=== PATIENT | male | born 1950 | race Caucasian/White ===

== ENCOUNTER 2017-02-12 11:54 | Day surgery (SDC) | payer MEDICARE, OTHER ==
[~2017-02-12] VITALS: Ht 162.6 cm; Wt 91.2 kg
[2017-02-12] MEDS ORDERED: IOHEXOL 350 MG/ML 100 ML BTL (for Cath Lab) OTHER ONE (11:55)
--- NOTE | 2017-02-12 13:28 | PD.VS.PN ---
Pre-operative Note Pre-operative diagnosis: PAD, R>L LE pain Planned procedure: Aortogram w/ R LE angiogram Interval History: Pt has been feeling well; no new history that would preclude surgery Labs: pending Blood: none needed Imaging: will make in OR Orders: NPO Post-operative destination: DOCU Operative site marked: Yes Consent: Informed consent has been obtained from Jakob Jacobsen. I have explained the procedure in detail and discussed the risks, benefits, and potential complications. All questions have been answered. Tereso Renee MD Feb 12, 2017 13:28
[2017-02-12 13:33] LABS: BASOPHIL % 0.1 % (0.0-2.0); EOSINOPHIL # 0.4 TH/MM3 (0-0.4); EOSINOPHIL % 4.5 % (0.0-4.0); HEMATOCRIT 42.1 % (39.0-51.0); HEMO FLAGS DIFF FINAL; LYMPH % 15.7 % (9.0-44.0); LYMPHOCYTE # 1.3 TH/MM3 (1.0-4.8); MEAN CELL VOLUME 91.5 FL (80.0-100.0); MEAN CORPUSCULAR HEMOGLOBIN 30.6 PG (27.0-34.0); MEAN CORPUSCULAR HGB CONC 33.4 % (32.0-36.0); MONO % 6.6 % (0.0-8.0); NEUT % 73.1 % (16.0-70.0); PLATELET COUNT 292 TH/MM3 (150-450); RED CELL DISTRIBUTION WIDTH 14.6 % (11.6-17.2); WHITE BLOOD COUNT 8.3 TH/MM3 (4.0-11.0)
[2017-02-12 13:42] LABS: PROTHROMBIN TIME - PATIENT 10.5 SEC (9.8-11.6)
[2017-02-12 13:44] VITALS: BP 126/75; PULSE 62; RESP 18; TEMP 98.4; O2SAT 62
[2017-02-12] MEDS ORDERED: AMLO10TA2 PO (13:56)
[2017-02-12] MEDS ORDERED: TRIA37.5 PO (13:56)
[2017-02-12] MEDS ORDERED: ISOS30TA3 PO (13:56)
[2017-02-12] MEDS ORDERED: PLAV75TA29 PO (13:56)
[2017-02-12] MEDS ORDERED: HYDR50TA94 PO (13:56)
[2017-02-12] MEDS ORDERED: MIRTA15 PO (13:56)
[2017-02-12] MEDS ORDERED: LIPI40TA PO (13:56)
[2017-02-12] MEDS ORDERED: OMEP20TA93 PO (13:56)
[2017-02-12] MEDS ORDERED: ADVA250A INH (13:56)
[2017-02-12] MEDS ORDERED: APRI0.372 PO (13:56)
[2017-02-12] MEDS ORDERED: FLUT1SPR5 EACH NARE (13:56)
[2017-02-12] MEDS ORDERED: OMEG100046 (13:56)
[2017-02-12] MEDS ORDERED: ASPI-516 CHEW (13:56)
[2017-02-12] MEDS ORDERED: APIX5TAB PO (13:56)
[2017-02-12] MEDS ORDERED: LISI40TA PO (13:56)
[2017-02-12] MEDS ORDERED: TAMS0.4C4 PO (13:56)
[2017-02-12] MEDS ORDERED: ALLE10TA10 (13:56)
[2017-02-12] MEDS ORDERED: QUET1TAB9 PO (13:56)
[2017-02-12] MEDS ORDERED: NOVORP2 SQ (13:56)
[2017-02-12] MEDS ORDERED: GABA600T PO (13:56)
[2017-02-12] MEDS ORDERED: METF-382 PO (13:56)
[2017-02-12 14:14] LABS: BICARBONATE 30.6 MEQ/L (21.0-32.0)
[2017-02-12] MEDS ORDERED: HEPARIN-NS/PF INJ 1,000 ML ONE (14:31)
[2017-02-12] MEDS ORDERED: MIDAZOLAM HCL 5 MG/5 ML VIAL ONE (14:32)
--- NOTE | 2017-02-12 14:59 | HHI.PR ---
Immediate Post Op Note Procedure Date: Feb 12, 2017 Pre Op Diagnosis: PAD, B LE Post Op Diagnosis: same Surgeon: Tereso Renee Adjunct Business Instructor(s): none Procedure: Aortogram w/ B LE angiogram Findings: 1. R EIA stenosis 2. R FIELD SERVICE TECH stenosis 3. R SFA occlusion with BK popliteal reconstitution 4. Diffuse L SFA disease Additional Information: 4F sheath in the L FIELD SERVICE TECH removed in OR Complications: none Specimen(s) removed: none Estimated blood loss: 5mL Anesthesia: General Drains: None Fluids: 300 mL Patient to: Other (DOCU) Patient Condition: Good Date/Time of Procedure: SEE SURGICAL CARE RECORD Tereso Renee MD Feb 12, 2017 14:59
[2017-02-12] MEDS ORDERED: MORPHINE SULFATE 4 MG/ML INJ IV PRN (15:00)
--- NOTE | 2017-02-12 15:11 | CATHPROC ---
[facility] HIS Report Study Information Study Number Admission Scheduled Start Study Start [id number] Feb 12 2017 11:54AM 02/12/2017 Feb 12 2017 1:42PM [place] Service Cath Endovascular Study Admit Source Facility Department Other [facility] - Antenna Rigger Physician and Clinical Staff Initial Tereso Valdez Equipment SuperintendentTalia Adame,ARTUR Equipment SuperintendentRomario Medina,RN Recorder Homer Mejia,RT(R) Scrub Tylor LongRT(R) Procedures Performed Procedure Location (Site) Vessel Name Abdominal Angiogram Abd Aorta (A3) Aorta Abdominal Angiogram Fem R. Com (R7) Femoral Art Abdominal Angiogram PELVIS Abdominal Angiogram Popliteal R (R10) Popliteal Abdominal Angiogram SFA (right) Femoral Art Abdominal Angiogram Tib, Ant. (right) Popliteal Angiogram (manual) Fem Art (left) Femoral Art Angiogram (manual) Fem Art (right) Femoral Art Angiogram (manual) Popliteal L (L10) Popliteal Angiogram (manual) SFA (right) Femoral Art Wire insertion Fem Art (left) Femoral Art Equipment Time Tea Taster Description Size Mfg Part Number Used/Scraped [id number] 13:43 ANGIO-DYNAMICS OMNI FLUSH 65CM CATHETER FR 4 Used *[id number] INTRODUCER SET, 13:43 [employer] FR 5 [id number] *[id number] Used MICROPUNCTURE, STIFFENED [id number] 13:43 [employer] PACK, CCL CUSTOM * Used *[id number] 13:43 [employer] PRESSURE TUBING 48" 48" [id number] Used [id number] 13:43 NAMIC TUBING, HIGH PRESSURE 20" 20" Used *[id number] 13:43 [employer]COMED OMNIPAQUE, 300 MG, 150ML 150ML [id number] Used 13:43 NYCOMED OMNIPAQUE, 300 MG, 50ML 50ML [id number] Used [id number] 13:43 [employer] BLANKET,WARM AIR CCL * Used *[id number] 13:43 TERUMO MEDICAL SHEATH, FR4 TERUMO (10CM) FR 4 Used *[id number] 13:43 TERUMO MEDICAL SHEATH, FR4 TERUMO (10CM) FR 4 Used *[id number] WIRE, ANGLED GLIDE .035 [id number] 13:43 TERUMO MEDICAL/STEVEN 260CM Used 260CM *[id number] History: Current Medications Medication Dosage/Unit Route Frequency Last Date/Time Taken LIPITOR LISINOPRIL NORVASC Imdur ASA ELIQUIS History: Allergies Allergy Reaction fentanyl History: Risk Factors Family History of Hypertension Dyslipidemia Previous LA Previous Heart Failure Premature CAD Yes Yes No Yes No Prior Valve Prior PCI Prior PCIDate Prior CABG Surgery No Yes 01/31/2015 No Cerebrovascular Peripheral Artery Chronic Lung On Dialysis Diabetes Diabetes Therapy Disease Disease Disease No Yes Yes Yes Yes Oral History: CV Disease Selection Items Known CAD History: Stress Tests Stress or Imaging Studies Performed No History: Other Disease Selection Items CAD COPD HTN History: Other Current Smoker Method Quit Packs a Day Years Used Pack Years No Cigarettes 8 Years Ago 2 40 80 Labs Hgb (g/dl) Hct (%) RBC (MIL/MM3) WBC (l/cumm) Platelets (thousands) 11.60-17.00 35.00-51.00 4.00-5.90 4.00-11.00 150.00-450.00 14.1 42.1 4.6 8.3 292 Glucose (mg/dl) BUN (mg/dl) Creatinine (mg/dl) BUN:Creatinine (1:x) 74.00-106.00 7.00-18.00 0.50-1.30 10.00-20.00 168 22 1.0 22 Na (meq/l) K (meq/l) Cl (meq/l) CO2 (mmol/L) Ca (mg/dl) 136.00-145.00 3.50-5.10 98.00-107.00 21.00-32.00 8.50-10.10 136 4 101 30.6 9.2 PT (sec) INR (PTT:PT) 9.80-11.60 0.90-1.10 10.5 1 CPK-MB (ng/ML) 0.50-3.60 Not Drawn Medication Medication Total Dose (Bolus/Oral) Medication Total Dosage/Unit 1% XYLOCAINE 20 mL VERSED 4 mg Medications (Bolus/Oral) Medication Time Given Dosage/Unit Administered By Reason VERSED 02/12/2017 2:38:44 PM 2 mg Talia Wiggins 2 mg VERSED given in lab by Talia Wiggins RN in Left Antecubital via Peripheral IV. 1% XYLOCAINE 02/12/2017 2:40:49 PM 20 mL Tereso Renee 20 mL 1% XYLOCAINE given in lab by Tereso Renee in Left Groin via Subcutaneous. VERSED 02/12/2017 2:53:27 PM 2 mg Talia Wiggins 2 mg VERSED given in lab by Talia Wiggins RN in Left Antecubital via Peripheral IV. Medication (Drip) Medication Time Given Dosage/Unit Concentration/Unit Diluent (ml) Solution IV Solutions 02/12/2017 2:26:41 PM 0 mL (IV) 500 NaCl .9 IV Solutions given in lab by Talia Wiggins RN in Left Antecubital via Peripheral IV. Pump/Drip Tripp w = 20 ml/hr using NaCl .9. Initial Case Assessment Cardiovascular HR Rhythm NIBP Chest Pain 70 Sinus 144/73 0 Edema Present Skin color Skin None Normal Warm Dry Circulatory - Right Pulses Dorsalis Pedis Femoral d 1 Scale (0,1,2,3,4,d) Circulatory - Left Pulses Dorsalis Pedis Femoral d 2 Scale (0,1,2,3,4,d) Neurological State Oriented to time-place- Alert Moves all extremities person Respiration - General Respiration Rate SpO2 (%) O2 (lpm) (B/min) 13 98 0 Final Case Assessment Cardiovascular HR Rhythm NIBP Chest Pain 73 Sinus 131/70 0 Edema Present Skin color Skin None Normal Warm Dry Circulatory - Right Pulses Dorsalis Pedis Femoral d 1 Scale (0,1,2,3,4,d) Circulatory - Left Pulses Dorsalis Pedis Femoral d 2 Scale (0,1,2,3,4,d) Neurological State Oriented to time-place- Alert Moves all extremities person Respiration - General Respiration Rate SpO2 (%) O2 (lpm) (B/min) 20 91 0 Chronological Log Time Study Chronological Log 14:25:51 MD arrived. 14:25:54 Patient arrived via Bed. 14:25:56 Patient Name, D.O.B, / Armband Verified By R.N. 14:25:57 Consent signed by the physician and the patient and verified by the Antenna Rigger staff. 14:25:58 Pre-op and post- op instructions given; patient acknowledges understanding of instructions. 14:25:59 Verbal Stimulation=2 Physical Stimulation=2 Airway=2 Respiration=2 TOTAL=8. (0=absent, 1=li mited, 2=present) 14:26:10 Presedation assessment performed by Antenna Rigger RN. 14:26:13 Patient has been NPO for More than 6Hrs. 14:26:13 Skin Breakdown-none per patient. 14:26:22 Patient Warmer Placed on the Table. 14::29 Corinne Prominences Protected 14:26:31 A # 20 IV was noted in the Antecubital (left). Grade = 0 IV Solutions given in lab by Talia Wiggins, RN in Left Antecubital via Peripheral IV. Pump/Dr ip Flow = 20 ml/hr using 14:26:41 NaCl .9. 14:26:57 History and physical on the chart or being dictated. Assessment: Initial Case, HR=70 BPM, Rhythm=Sinus, JGJG=640/73 mmhg, Chest Pain=0, Edema=None, Color=Normal, Skin = Warm, Dry Right Pulses: Emiliano Ped=d, Femoral=1 14:26:58 Left Pulses: Emiliano Ped=d, Femoral=2 Neurological: State=Alert, Ox3, NAYAK Respiration: Resp=13 B/min, SpO2=98 %, O2=0 lpm Vitals capture started with the following parameters, Patient=Adult, Interval=3 min, Initial Pr yvkjcf=022 mmHg, 14:36:37 Deflation Rate=5 mmHg, Cuff placed on Right Arm 14:37:19 HR=62 bpm, BXIP=083/73 mmhg, SpO2=98.0 %, Resp=11 B/min, Pain=0, Jaimee=10, Ferrari=2 14:38:25 Reference ECG taken 14:38:42 Bilateral groins prepped with 2% chlorhexidine, and draped after a 3 minute waiting time. 14:38:44 2 mg VERSED given in lab by Talia Wiggins, RN in Left Antecubital via Peripheral IV. 14:40:17 HR=77 bpm, GDCL=732/78 mmhg, SpO2=97.0 %, Resp=20 B/min, Pain=0, Jaimee=10, Ferrari=2 Time Out. Correct patient, correct procedure, correct physician, power injector loaded, with co ntrast with surgical team 14:40:32 present. Time Out Concurred by MD and individual staff in procedure. 14:40:45 Case Start 14:40:49 20 mL 1% XYLOCAINE given in lab by Tereso Renee in Left Groin via Subcutaneous. 14:42:30 Access site was Left Femoral Artery. 14:42:37 A SHEATH, FR4 TERUMO (10CM) FR 4 was advanced into the Fem Art (left) using the Percutaneou s technique. A OMNI FLUSH 65CM CATHETER FR 4 was advanced over a wire. OMNIPAQUE, 300 MG, 150ML 150ML was us ed for 14:43:03 injections. 14:43:15 HR=75 bpm, QJFW=133/70 mmhg, SpO2=99.0 %, Resp=8 B/min, Pain=0, Jaimee=10, Ferrari=2 14:45:45 Through a OMNI FLUSH 65CM CATHETER FR 4, The Abdominal Aorta was injected with 10 cc's of c ontrast. 14:46:09 Through a OMNI FLUSH 65CM CATHETER FR 4, The Abdominal Aorta was injected with 10 cc's of c ontrast. 14:46:15 HR=80 bpm, ZEYU=153/70 mmhg, SpO2=95.0 %, Resp=15 B/min, Pain=0, Jaimee=10, Ferrari=2 14:46:24 Through a OMNI FLUSH 65CM CATHETER FR 4, The Abdominal Aorta was injected with 10 cc's of c ontrast. 14:46:31 A WIRE, ANGLED GLIDE .035 260CM 260CM was inserted via Fem Art (left). 14:48:22 Fem Art (right) angiogram, manually injected. 14:49:13 HR=76 bpm, VISI=813/68 mmhg, SpO2=98.0 %, Resp=17 B/min, Pain=0, Jaimee=10, Ferrari=2 14:49:21 Through a OMNI FLUSH 65CM CATHETER FR 4, The Abdominal Aorta was injected with 4 cc's of co ntrast. 14:50:09 Through a OMNI FLUSH 65CM CATHETER FR 4, The Abdominal Aorta was injected with 4 cc's of co ntrast. 14:50:28 Through a OMNI FLUSH 65CM CATHETER FR 4, The Abdominal Aorta was injected with 4 cc's of co ntrast. 14:50:46 Through a OMNI FLUSH 65CM CATHETER FR 4, The Abdominal Aorta was injected with 4 cc's of co ntrast. 14:52:16 HR=76 bpm, RQJX=089/72 mmhg, SpO2=95.0 %, Resp=21 B/min, Pain=0, Jaimee=10, Ferrari=2 14:52:30 Catheter was removed w/o difficulty 14:52:31 Fem Art (left) angiogram, manually injected. 14:53:03 SFA (right) angiogram, manually injected. 14:53:09 Popliteal L (L10) angiogram, manually injected. 14:53:27 2 mg VERSED given in lab by Talia Wiggins, RN in Left Antecubital via Peripheral IV. 14:54:04 Case End 14:54:17 Sheath removed; pressure applied to access site. 14:54:22 No case complications noted. 14:54:24 Cine recording checked. 14:54:50 Bedside Report will be given. 14:55:16 HR=68 bpm, BLWR=285/73 mmhg, SpO2=93.0 %, Resp=16 B/min, Pain=0, Jaimee=10, Ferrari=2 Assessment: Final Case, HR=73 BPM, Rhythm=Sinus, LQKC=660/70 mmhg, Chest Pain=0, Edema=None, Color=Normal, Skin = Warm, Dry Right Pulses: Emiliano Ped=d, Femoral=1 14:57:14 Left Pulses: Emiliano Ped=d, Femoral=2 Neurological: State=Alert, Ox3, NAYAK Respiration: Resp=20 B/min, SpO2=91 %, O2=0 lpm 14:58:14 HR=74 bpm, HPKO=153/70 mmhg, SpO2=98.0 %, Resp=22 B/min, Pain=0, Jaimee=10, Ferrari=2 15:01:16 HR=63 bpm, EOYL=442/74 mmhg, SpO2=93.0 %, Resp=18 B/min, Pain=0, Jaimee=10, Ferrari=2 15:04:17 HR=75 bpm, SVJG=226/76 mmhg, SpO2=97.0 %, Resp=21 B/min, Pain=0, Jaimee=10, Ferrari=2 15:07:15 HR=65 bpm, SYOJ=663/69 mmhg, SpO2=85.0 %, Resp=23 B/min, Pain=0, Jaimee=10, Ferrari=2 15:09:47 Sterile dressing applied to site 15:10:15 HR=63 bpm, MLKI=189/74 mmhg, Resp=15 B/min, Pain=0, Jaimee=10, Ferrari=2 15:10:17 Vitals capture stopped. End Study - Contrast Media Used In Study Contrast Total Opened (mL) Total Used (mL) Total Wasted (mL) Omnipaque 100 60 40 End Study - Maximum Contrast Load Max Contrast Load (mL) 455.9 End Study - Radiation Exposure Fluoro Time (minutes) 3.2 End Study - Patient Disposition Complications Transferred To Interventional Outcome No Outpatient Bed No attempt made
--- NOTE | 2017-02-13 08:19 | MP ---
cc: TERESO RENEE MD DATE OF SURGERY 02/12/2017 PREOPERATIVE DIAGNOSIS Bilateral lower extremity rest pain, failed intervention. POSTOPERATIVE DIAGNOSIS Bilateral lower extremity rest pain, failed intervention. PROCEDURE Aortogram with bilateral lower extremity angiogram. MEDICATIONS Tereso Renee MD ANESTHESIA Local with sedation INDICATION Mr. Jacobsen is a 66-year-old gentleman with failed bilateral lower extremity interventions. He has right leg rest pain and left leg near rest pain and is taken to the operating room for angiographic evaluation and treatment. There is no prior catheter-based imaging available for my review. DESCRIPTION OF PROCEDURE Informed consent was obtained from the patient. The patient was taken to the operating room, placed supine on the operating room table and an appropriate time-out was taken to ensure the patient's identity, operative site and planned procedure. Antibiotics were not necessary as this was a clean procedure without planned implantation of any foreign objects. Everyone in the room agreed with the time-out and we proceeded. Bilateral groins were prepped and draped and the left groin was anesthetized with 1% lidocaine. A 21 gauge micropuncture needle was used to access the left common femoral artery. This was exchanged using Seldinger technique for the micropuncture sheath through which a 0.035 Glidewire was introduced. The micropuncture sheath was changed for a 4-Danish sheath. A VCF catheter was placed over the wire and through the sheath and the aortogram and pelvic arteriograms obtained. The Glidewire was introduced and navigated down to the right common femoral artery. The VCF catheter was advanced over this and a right lower extremity arteriogram was obtained. The wire and catheter removed and a left lower extremity angiogram was obtained through the sheath. The sheath was removed, pressure held for hemostasis. There were no complications. I was present and scrubbed for the entire procedure. INTERPRETATION This patient has a patent infrarenal aorta, patent common iliac arteries bilaterally, patent hypogastric arteries bilaterally. The right external artery has a high-grade stenosis proximally. The common femoral artery is patent. The profunda is patent. The right common femoral artery appears to have calcific plaque that is likely on the posterior surface of the plaque. The SFA has a flush occlusion and is intensely calcified. Profunda based collaterals give rise to the popliteal artery and there is reasonable runoff below the popliteal artery. On the left-hand side, the left common femoral artery is patent. The profunda is patent. The SFA has diffuse calcific disease, but is not occluded until the distal SFA. The popliteal artery is patent. MD CHRISTOS George/IBETH /4:10 PM /8:17 AM
== END 2017-02-12 19:10 | disposition home or self-care (01) ==
LOC: HDIC 11:54 → HCAT 11:54
PROVIDERS: ATTEND Surgery
DX: I73.9 Peripheral vascular disease, unspecified (principal); Z01.818 Encounter for other preprocedural examination
CPT/HCPCS: 75625; 75716; 80048; 85025; 85610; 99152; C1769; C1893; J1644; J2250; Q9967

== ENCOUNTER 2017-02-26 05:27 | Inpatient (IN) | payer OTHER ==
[~2017-02-26] VITALS: Ht 162.6 cm; Wt 88.5 kg
[2017-02-26] VITALS (7 sets, daily range): BP systolic 118–174; BP diastolic 58–79; PULSE 79–100; RESP 16–18; TEMP 97.1–97.7; O2SAT 98–99
[~2017-02-26 05:27] MED LIST: ADVA250A INH; ALLE10TA10; AMLO10TA2 PO; APIX5TAB PO; APRI0.372 PO; ASPI-516 CHEW; FLUT1SPR5 EACH NARE; GABA600T PO; HYDR50TA94 PO; ISOS30TA3 PO; LIPI40TA PO; LISI40TA PO; METF-382 PO; MIRTA15 PO; NOVORP2 SQ; OMEG100046; OMEP20TA93 PO; PLAV75TA29 PO; QUET1TAB9 PO; TAMS0.4C4 PO; TRIA37.5 PO
[2017-02-26] MEDS ORDERED: INSULIN HUMAN REGULAR 1,000 UNITS/10 ML VIAL SQ PRN (06:15)
[2017-02-26] MEDS ORDERED: METOPROLOL TARTRATE 25 MG TAB PO PRN (06:15)
[2017-02-26] MEDS ORDERED: POVIDONE IODINE 5% (ANTISEPSIS KIT) 4 APPLICATIONS EACH NARE PRN (06:15)
[2017-02-26] MEDS ORDERED: SODIUM CHLORID 0.9% 500 ML IV PRN (06:15)
[2017-02-26] MEDS ORDERED: CHLORHEXIDINE GLUCONATE 2 % 1 PACK (2 CLOTHS) TOPICAL PRN (06:15)
[2017-02-26] MEDS ORDERED: LACTATED RINGER'S 1000 ML IV PRN (06:15)
[2017-02-26] MEDS ORDERED: LANTUS2P SQ (06:49)
--- NOTE | 2017-02-26 06:50 | RADRPT ---
EXAM DATE/TIME: 02/26/2017 06:17 [place] COMPARISON: No previous studies available for comparison. INDICATIONS : Evaluation of lung status as patient is being pre-oped for vascular surgery. MEDICAL HISTORY : Cardiovascular disease. SURGICAL HISTORY : None. ENCOUNTER: Initial ACUITY: 1 day PAIN SCORE: 0/10 LOCATION: Bilateral chest FINDINGS: The heart size is normal. There is mild increased density in the retrocardiac area. The right lung is clear. No effusion is seen. CONCLUSION: Suspected mild left base atelectasis or consolidation. Phil Morrell MD on February 26, 2017 at 6:48 Board Certified Radiologist. This report was verified electronically.
[2017-02-26 07:05] LABS: AUTOMATED NEUTROPHIL # 4.8 TH/MM3 (1.8-7.7); BASOPHIL % 0.4 % (0.0-2.0); EOSINOPHIL # 0.3 TH/MM3 (0-0.4); EOSINOPHIL % 4.5 % (0.0-4.0); HEMATOCRIT 39.8 % (39.0-51.0); HEMO FLAGS DIFF FINAL; LYMPH % 24.4 % (9.0-44.0); LYMPHOCYTE # 1.9 TH/MM3 (1.0-4.8); MEAN CELL VOLUME 91.5 FL (80.0-100.0); MEAN CORPUSCULAR HEMOGLOBIN 31.6 PG (27.0-34.0); MEAN CORPUSCULAR HGB CONC 34.5 % (32.0-36.0); MONO % 7.9 % (0.0-8.0); NEUT % 62.8 % (16.0-70.0); PLATELET COUNT 261 TH/MM3 (150-450); RED BLOOD COUNT 4.35 MIL/MM3 (4.50-5.90); WHITE BLOOD COUNT 7.7 TH/MM3 (4.0-11.0)
[2017-02-26] MEDS ORDERED: D5-1/2 NS + KCL 20 MEQ INJ 1,000 ML IV SCH (07:14)
--- NOTE | 2017-02-26 07:14 | HHI.HP ---
History of Present Illness Chief Complaint: R LE rest pain, PAD History of Present Illness 66 yo male with PAD and R LE rest pain. Has had multiple R LE endovascular interventions, all elsewhere. Complains of pain every night. No wounds and no motor dysfunction. Past/Family/Social History Past Medical History CAD with WA and h/o coronary stents HTN Hypercholesterolemia DM CVOD prostate CA Past Surgical History LHC with stents Social History ex smoker Family History NC Home Medications Reported Medications Insulin Glargine Inj (Lantus Inj) 1,000 Unit/10 Ml Vial, 1 UNITS SQ HS for Blood Sugar Management, VIAL 0 Refills 02/26/17 [place]-3/Dha/Epa/Fish Oil (Fish Oil 1,000 mg Softgel) 1,000 Mg (120 Mg-180 Mg) Capsule 02/12/17 Triamterene-Hydrochlorothiazide (Triamterene-Hydrochlorothiazide) 37.5-25 Mg Tab , 1 TAB PO DAILY, #30 TAB 0 Refills 02/12/17 Tamsulosin (Tamsulosin) 0.4 Mg Cap, 0.4 MG PO HS for Manage Prostate Problems, # 30 CAP 0 Refills 02/12/17 Quetiapine (Quetiapine) 200 Mg Tab, 200 MG PO BID, #60 TAB 0 Refills 02/12/17 Omeprazole (Omeprazole) 20 Mg Tab, 20 MG PO DAILY, #30 TAB 0 Refills 02/12/17 Insulin Human Regular Inj (Novolin R Inj) 1,000 Unit/10 Ml Vial, 30 UNITS SQ TID for Blood Sugar Management, #10 ML 0 Refills 02/12/17 Mirtazapine (Mirtazapine) 15 Mg Tab, 15 MG PO HS for Depression Control, #30 TAB 0 Refills 02/12/17 Metformin ER (Metformin ER) 1,000 Mg Cameron, 1000 MG PO DAILY for Blood Sugar Management, #30 TAB 0 Refills With evening meal 02/12/17 Loratadine (Allergy) 10 Mg Tab 02/12/17 Lisinopril (Lisinopril) 40 Mg Tab, 40 MG PO DAILY for Blood Pressure Management , #30 TAB 0 Refills 02/12/17 Isosorbide Mononitrate ER (Isosorbide Mononitrate ER) 30 Mg Cameron, 30 MG PO DAILY for Prevent Chest Pain, #30 TAB 0 Refills 02/12/17 Hydroxyzine HCl (Hydroxyzine HCl) 50 Mg Tab, 50 MG PO HS Y for INSOMNIA, TAB 0 Refills 02/12/17 Gabapentin (Gabapentin) 600 Mg Tab, 600 MG PO BID, #60 TAB 0 Refills 02/12/17 Apixaban (Eliquis) 5 Mg Tab, 5 MG PO BID for Blood Clot Prevention, #60 TAB 0 Refills 02/12/17 Clopidogrel (Plavix) 75 Mg Tab, 75 MG PO DAILY for Blood Clot Prevention, #30 TAB 0 Refills 02/12/17 Atorvastatin (Lipitor) 40 Mg Tab, 40 MG PO HS for Cholesterol Management, #30 TAB 0 Refills 02/12/17 Aspirin (Aspirin) 81 Mg Chew, 81 MG CHEW DAILY, TAB 0 Refills 02/12/17 Mesalamine ER 24 HR (Apriso) 0.375 Gm Caper, 1.5 GM PO DAILY for Ulcerative colitis, CAP 0 Refills 02/12/17 Amlodipine (Amlodipine) 10 Mg Tab, 10 MG PO DAILY for Blood Pressure Management , #30 TAB 0 Refills 02/12/17 Fluticasone-Salmeterol Inh (Advair Diskus Inh) 250-50 Mcg/Blist Aer, 1 PUFF INH BID, #1 INHALER 0 Refills Rinse mouth after use. 02/12/17 Discontinued Reported Medications Fluticasone Nasal Mathews (Flonase Nasal Mathews) 50 Mcg/Act Mathews, 50 MCG EACH NARE BID Y for ALLERGIES, #1 BOTTLE 0 Refills 02/12/17 Coded Allergies: fentanyl (Verified Allergy, Severe, 02/26/17) severe agitation and aggresion Review of Systems Constitutional: DENIES: Fever, Chills Cardiovascular: DENIES: Chest pain Physical Exam Neuro: alert, resting, NAYAK HEENT: NC/AT; anicteric sclera Neck: no JVD Heart: reg rate Lungs: clear and nonlabored Abdomen: NT, modest obesity Vascular: diminished R groin pulse; no groin rashes Extremities: NAYAK, no wounds Laboratory Tests Test 02/26/17 06:40 White Blood Count 7.7 Red Blood Count 4.35 Hemoglobin 13.8 Hematocrit 39.8 Mean Corpuscular Volume 91.5 Mean Corpuscular Hemoglobin 31.6 Mean Corpuscular Hemoglobin Concent 34.5 Red Cell Distribution Width 15.0 Platelet Count 261 Mean Platelet Volume 8.0 Neutrophils (%) (Auto) 62.8 Lymphocytes (%) (Auto) 24.4 Monocytes (%) (Auto) 7.9 Eosinophils (%) (Auto) 4.5 Basophils (%) (Auto) 0.4 Neutrophils # (Auto) 4.8 Lymphocytes # (Auto) 1.9 Monocytes # (Auto) 0.6 Eosinophils # (Auto) 0.3 Basophils # (Auto) 0.0 CBC Comment DIFF FINAL Differential Comment CTA and angiogram reviewed Caprini VTE Risk Assessment Caprini VTE Risk Assessment: Mod/High Risk (score >= 2) Caprini Risk Assessment Model Point Value = 1 Point Value = 2 Point Value = 3 Point Value = 5 Age 41-60 Minor surgery BMI > 25 kg/m2 Swollen legs Varicose veins or History of unexplained or recurrent spontaneous Oral contraceptives or hormone replacement Sepsis (< 1 month) Serious lung disease, including pneumonia (< 1 month) Abnormal pulmonary function Acute myocardial infarction Congestive heart failure (< 1 month) History of inflammatory bowel disease Medical patient at bed rest Age 61-74 Arthroscopic surgery Major open surgery (> 45 min) Laparoscopic surgery (> 45 min) Malignancy Confined to bed (> 72 hours) Immobilizing plaster cast Central venous access Age >= 75 History of VTE Family history of VTE Factor V Leiden Prothrombin [id number] Lupus anticoagulant Anticardiolipin antibodies Elevated serum homocysteine Heparin-induced thrombocytopenia Other congenital or acquired thrombophilia Stroke (< 1 month) Elective arthroplasty Hip, pelvis, or leg fracture Acute spinal cord injury (< 1 month) Prophylaxis Regimen Total Risk Factor Score Risk Level Prophylaxis Regimen 0-1 Low Early ambulation 2 Moderate Order ONE of the following: *Sequential Compression Device (SCD) *Heparin 5000 units SQ BID 3-4 Higher Order ONE of the following medications: *Heparin 5000 units SQ TID *Enoxaparin/Lovenox 40 mg SQ daily (WT < 150 kg, CrCl > 30 mL/min) *Enoxaparin/Lovenox 30 mg SQ daily (WT < 150 kg, CrCl > 10-29 mL/min) *Enoxaparin/Lovenox 30 mg SQ BID (WT < 150 kg, CrCl > 30 mL/min) AND/OR *Sequential Compression Device (SCD) 5 or more Highest Order ONE of the following medications: *Heparin 5000 units SQ TID (Preferred with Epidurals) *Enoxaparin/Lovenox 40 mg SQ daily (WT < 150 kg, CrCl > 30 mL/min) *Enoxaparin/Lovenox 30 mg SQ daily (WT < 150 kg, CrCl > 10-29 mL/min) *Enoxaparin/Lovenox 30 mg SQ BID (WT < 150 kg, CrCl > 30 mL/min) AND *Sequential Compression Device (SCD) Assessment and Plan Plan PAD with R LE rest pain; plan for R LE revascularization (open and endovascular ) Discharge Planning probably 5-7 days [facility] [phone] Tereso Renee MD Feb 26, 2017 07:14
[2017-02-26] MEDS ORDERED: MAGNESIUM HYDROXIDE SUSP 30 ML CUP PO PRN (07:15)
[2017-02-26] MEDS ORDERED: BISACODYL 10 MG SUPP RECTAL PRN (07:15)
[2017-02-26] MEDS ORDERED: SENNOSIDES 8.6 MG TAB PO PRN (07:15)
[2017-02-26] MEDS ORDERED: BUPIVACAINE HCL PF 0.5% 30 ML VIAL ONE (07:20)
[2017-02-26] MEDS ORDERED: THROMBIN (TOPICAL) 20,000 UNIT SPRAY KIT ONE (07:20)
[2017-02-26] MEDS ORDERED: HEPARIN SODIUM - IV 10,000 UNITS/10 ML VIAL ONE ×2 (07:20→09:11)
[2017-02-26] MEDS ORDERED: PROTAMINE SULFATE 50 MG/5 ML VIAL ONE ×2 (07:20→11:34)
[2017-02-26 07:21] LABS: BICARBONATE 29.4 MEQ/L (21.0-32.0); POTASSIUM 3.3 MEQ/L (3.5-5.1)
[2017-02-26] MEDS ORDERED: HEPARIN-NS/PF INJ 500 ML ONE ×2 (07:21→10:48)
[2017-02-26] MEDS ORDERED: ceFAZolin 2 GM PREMIX 50 ML ONE ×2 (07:21→12:19)
[2017-02-26] MEDS ORDERED: GLUCAGON 1 MG/ML VIAL OTHER PRN (07:30)
[2017-02-26] MEDS ORDERED: DEXTROSE 50% IN WATER 50 ML VIAL(D50) IV PUSH PRN (07:30)
[2017-02-26] MEDS ORDERED: FAMOTIDINE 20 MG/2 ML VIAL ONE (07:37)
[2017-02-26] MEDS ORDERED: ACETAMINOPHEN 1000 MG/100 ML 100 ML IV ONE (07:37)
[2017-02-26] MEDS ORDERED: MIDAZOLAM HCL 2 MG/2 ML VIAL ONE (07:38)
[2017-02-26] MEDS ORDERED: HYDROmorphone HCL PF 2 MG/ML VIAL ONE (07:38)
--- NOTE | 2017-02-26 08:18 | EKG ---
Date Performed: 02/26/2017 Time Performed: 07:03:59 PTAGE: 66 years EKG: Sinus rhythm RIGHT AXIS DEVIATION NONDIAGNOSTIC INFERIOR Q WAVES ABNORMAL ECG NO PREVIOUS TRACING DOCTOR: Shailesh White Interpretating Date/Time 02/26/2017 08:16:50
[2017-02-26] MEDS ORDERED: FAMOTIDINE 20 MG TAB PO SCH (09:00)
[2017-02-26] MEDS ORDERED: DEXMEDETOMIDINE HCL 200 MCG/2 ML VIAL ONE (11:34)
[2017-02-26] MEDS ORDERED: MORPHINE SULFATE 4 MG/ML INJ IV ONE (12:00)
[2017-02-26] MEDS ORDERED: NEOSTIGMINE 3 MG/3 ML SYR IV ONE (12:00)
[2017-02-26] MEDS ORDERED: ePHEDrine/NS 25 MG/5 ML SYR IV ONE (12:00)
[2017-02-26] MEDS ORDERED: PHENYLEPH/NS 1000 MCG/10 ML SYR IV ONE (12:00)
[2017-02-26] MEDS ORDERED: LABETALOL HCL 100 MG/20 ML VIAL IV ONE (12:00)
[2017-02-26] MEDS ORDERED: LIDOCAINE HCL 1% PF 5 ML SYRINGE OTHER ONE (12:00)
[2017-02-26] MEDS ORDERED: ROCURONIUM INJ 50 MG/5 ML SYRINGE IV PUSH ONE (12:00)
[2017-02-26] MEDS ORDERED: MIDAZOLAM HCL 2 MG/2 ML VIAL IV ONE (12:00)
[2017-02-26] MEDS ORDERED: GLYCOPYRROLATE 1 MG/5 ML SYRINGE IV PUSH ONE (12:00)
[2017-02-26] MEDS ORDERED: METOPROLOL TARTRATE 5 MG/5 ML VIAL IV PUSH ONE (12:00)
[2017-02-26] MEDS ORDERED: ONDANSETRON HCL 4 MG/2 ML VIAL IV PUSH ONE (12:00)
[2017-02-26] MEDS ORDERED: PROPOFOL 200 MG/20 ML AMP IV ONE (12:00)
[2017-02-26] MEDS ORDERED: ESMOLOL HCL 100 MG/10 ML VIAL IV ONE (12:00)
[2017-02-26] MEDS ORDERED: SODIUM CHLOR 0.9% 250 ML INJ 250 ML IV ONE (12:00)
[2017-02-26] MEDS ORDERED: LACTATED RINGER'S 1000 ML INJ 1,000 ML IV ONE (12:00)
[2017-02-26] MEDS ORDERED: NORMOSOL R INJ 2,000 ML IV ONE (12:00)
[2017-02-26] MEDS ORDERED: SODIUM CHLORID 0.9% 500 ML INJ 500 ML IV ONE (12:00)
[2017-02-26] MEDS ORDERED: PHENYLEPHRINE HCL 10 MG/ML VIAL IV ONE (12:00)
--- NOTE | 2017-02-26 12:18 | HHI.PR ---
Immediate Post Op Note Procedure Date: Feb 26, 2017 Pre Op Diagnosis: PAD, R LE rest pain Post Op Diagnosis: PAD, R LE rest pain Surgeon: Tereso Renee Publications Inspector(s): Trini Ly Procedure: 1. Ilioprofunda bypass (8mm Dacron) 2. R EIA stent (8x60 Zilver) 3. R GAS METER REPAIRER-BK pop with cryo Findings: very calcified arteries Additional Information: + DP/PT signals at end of case Complications: none Specimen(s) removed: none for pathology Estimated blood loss: 600mL Anesthesia: General Drains: None Fluids: 4000mL x'oid IVF Urinary Output (mLs): 700 Patient to: PACU Patient Condition: Good Implant/Devices: SEE IMPLANT LOG (if applicable) Date/Time of Procedure: SEE SURGICAL CARE RECORD Tereso Renee MD Feb 26, 2017 12:18
[2017-02-26] MEDS ORDERED: DO NOT ADM ANY ANTICOAGULANT DRUGS PRN (12:55)
[2017-02-26] MEDS ORDERED: *morphine SULFATE 8 MG/ML PERIprocedure ONLY ONE (13:58)
[2017-02-26] MEDS: HYDROmorphone HCL 2 MG TAB PO PRN ×3 (15:00→23:10)
[2017-02-26] MEDS: MORPHINE SULFATE 4 MG/ML INJ IV PUSH PRN ×5 (17:04→23:11)
[2017-02-26] MEDS: INSULIN ASPART SUPPLEMENTAL SCALE SQ SCH ×2 (18:11→21:00)
[2017-02-26] MEDS: QUEtiapine FUMARATE 200 MG TAB PO SCH ×2 (21:00→21:09)
[2017-02-26] MEDS: DOCUSATE SODIUM 50 MG/SENNA 8.6 MG TAB PO SCH ×2 (21:00→21:09)
[2017-02-26] MEDS: BUDESONIDE-FORMOTEROL 160/4.5 MCG INHALER INH SCH (21:00)
[2017-02-26] MEDS: GABAPENTIN 300 MG CAP PO SCH ×2 (21:00→21:09)
[2017-02-26] MEDS: TAMSULOSIN HCL 0.4 MG CAP PO SCH (21:09)
[2017-02-26] MEDS: ATORVASTATIN 40 MG TAB PO SCH (21:09)
[2017-02-26] MEDS: MIRTAZAPINE 15 MG TAB PO SCH (21:09)
[2017-02-27] VITALS (26 sets, daily range): BP systolic 103–136; BP diastolic 57–66; PULSE 105–136; RESP 16–20; TEMP 98.3–101.4; O2SAT 95–96
[2017-02-27] MEDS: MORPHINE SULFATE 4 MG/ML INJ IV PUSH PRN ×4 (00:59→22:45)
[2017-02-27] MEDS: HYDROmorphone HCL 2 MG TAB PO PRN ×2 (04:14→22:05)
[2017-02-27 04:31] LABS: HEMATOCRIT 32.3 % (39.0-51.0); MEAN CELL VOLUME 90.7 FL (80.0-100.0); MEAN CORPUSCULAR HEMOGLOBIN 31.2 PG (27.0-34.0); MEAN CORPUSCULAR HGB CONC 34.4 % (32.0-36.0); PLATELET COUNT 235 TH/MM3 (150-450); RED BLOOD COUNT 3.56 MIL/MM3 (4.50-5.90); RED CELL DISTRIBUTION WIDTH 14.9 % (11.6-17.2); REVIEW FLAG FINAL; WHITE BLOOD COUNT 9.6 TH/MM3 (4.0-11.0)
[2017-02-27 05:07] LABS: ANION GAP 6 MEQ/L (5-15); BLOOD UREA NITROGEN 11 MG/DL (7-18); CHLORIDE 103 MEQ/L (98-107); GLOMERULAR FILTRATION RATE 100 ML/MIN (>89); POTASSIUM 3.7 MEQ/L (3.5-5.1); SODIUM (NA) 138 MEQ/L (136-145)
--- NOTE | 2017-02-27 06:07 | MP ---
cc: SUKHJINDER RENEE MD DATE OF OPERATION 02/26/2017 PREOPERATIVE DIAGNOSIS Right lower extremity peripheral arterial occlusive disease, rest pain. POSTOPERATIVE DIAGNOSIS Right lower extremity peripheral arterial occlusive disease, rest pain. PROCEDURES 1. Right ilioprofunda bypass with 8-mm Dacron. 2. Right external iliac artery stent with an 8 x 60 Zilver. 3. Right femoral to below-knee popliteal artery bypass with cryopreserved vein. 4. Right lower extremity angiography. ATTENDING SURGEON Sukhjinder Renee MD REPATCHER SURGEON Trini Ly. ANESTHESIA General. INDICATIONS Mr. Gomez is a 66-year-old gentleman with right lower exam rest pain and multiple failed lower extremity interventions. He is taken to the operating room for revascularization. Preoperative old angiogram showed he had significant inflow disease but there was no visualized target on the preoperative angiogram and so an intraoperative first angiogram was performed. DESCRIPTION OF PROCEDURE Informed consent obtained from the patient. He was taken to the operating room and placed supine on the operating room table. Appropriate time-out was taken to ensure the patient's identity, operative site and planned procedure. The administration of 2 grams of Ancef were initiated prior to skin incision and will be discontinued after a single preoperative dose. Everyone in the room agreed with the time-out and we proceeded. He was prepped from his nipples to his toes. A vertical incision was the made in the patient's right groin, carried down in the subcutaneous tissue with electrocautery. The common femoral artery, distal external iliac artery, profunda femoris and superficial femoral artery were all dissected free and encircled with vessel loops. A 21-gauge micropuncture needle was used to access the common femoral artery and a right lower extremity angiogram was obtained. This showed that the patient had an occluded SFA which was known. He also had a below-knee popliteal artery and reasonable three-vessel runoff. The below-knee popliteal artery was then chosen as the site for the distal target of the bypass. An incision was made on the medial aspect of the proximal calf, carried down through subcutaneous tissue with electrocautery. The below-knee popliteal artery was identified and encircled with a vessel loop. A tunnel was then created between the two incisions. At this point the patient was systemically heparinized and throughout the remainder of the case the ACT was kept greater than 250. Proximal control of the distal external iliac artery was obtained with profunda clamps and the profunda branches were controlled with profunda clamps. The SFA was transected as it was known to be chronically occluded and the distal end was clipped and oversewn with 4-0 Prolene suture. The common femoral artery was excised in its entirety. The distal external iliac artery was endarterectomized, an 8-mm Dacron was brought up on the field and sewn end-to-end proximally to the external iliac artery and end-to-end distally to the profunda femoris artery both with running 5-0 Prolene suture. At the completion it was flushed, the clamps were released. There was a nice pulse in the profunda. A 21-gauge micropuncture needle was used to access the graft; this was exchanged using Seldinger technique for micropuncture sheath through which a 0.035 Glidewire was introduced. The micropuncture sheath was exchanged for a 6-Angolan sheath and the Glidewire was navigated up to the aorta and exchanged using Berenstein catheter for a Kincaid wire. An angiogram was obtained. This showed that the patient had a high-grade proximal external iliac artery stenosis and this was treated with an 8 x 60 Zilver self-expanding stent that was postdilated to 7 mm. At the completion of the angiogram there was excellent result without any recoil or extravasation and there was an improvement in the femoral pulse. The wire, catheter and sheath were removed. The graft was clamped proximally and distally and the sheathotomy from the endovascular intervention was extended longitudinally and cryopreserved conduit was brought up on the field and prepped in the standard fashion. It was spatulated and sewn end-to-side to the iliofemoral bypass graft with running 5-0 Prolene suture. The clamps were then released. The distal aspect of the graft was clamped with a hemoclip and the graft was marked for orientation. This passed through the previously made tunnel. Proximal and distal control of the below-knee popliteal artery obtained with profunda clamps and a longitudinal arteriotomy was made with an 11 blade, extended with Clyo scissors. The vein was cut to an appropriate length, spatulated and sewn end-to-side with running 6-0 Prolene suture. At the completion it was flushed and noted to be hemostatic. There was a nice pulse in the graft and a good Doppler signal in the foot. All the wounds made hemostatic. The heparin was reversed with protamine. The wounds were then closed with 2-0 Polysorb, 3-0 Polysorb and 4-0 Monocryl. The sponge and needle counts were correct at the end of the case. I was present and scrubbed for the entire procedure. I MD CHRISTOS George/MARIETTA /5:11 AM /5:47 AM
[2017-02-27] MEDS ORDERED: MESALAMINE 1.5 GM PO SCH (09:00)
[2017-02-27] MEDS: BUDESONIDE-FORMOTEROL 160/4.5 MCG INHALER INH SCH ×2 (09:00→21:00)
--- NOTE | 2017-02-27 09:02 | PD.VS.PN ---
Subjective POD #: 1 Procedure(s): R iliofemoral bypass, R fem-BK pop and EIA stent Subjective/Hospital Course Pt c/o pain in the R groin. Foot warm. Sharif po. Objective Vitals/I&O Date Time Temp Pulse Resp B/P (MAP) Pulse Ox O2 Delivery O2 Flow Rate FiO2 02/27/17 07:15 100.1 112 16 123/66 (85) 96 02/27/17 06:06 114 02/27/17 05:29 16 02/27/17 05:07 113 02/27/17 04:11 100.0 112 17 120/60 (80) 95 02/27/17 04:00 111 02/27/17 03:00 106 02/27/17 02:03 115 02/27/17 01:08 114 02/27/17 01:07 16 02/27/17 00:20 106 02/26/17 23:17 97.1 85 18 146/66 (92) 98 02/26/17 23:06 18 02/26/17 23:00 99 02/26/17 19:00 100 02/26/17 19:00 97.7 91 18 174/79 (110) 98 02/26/17 19:00 79 02/26/17 18:00 96 02/26/17 17:00 88 02/26/17 16:00 82 02/26/17 15:00 97.5 88 16 118/58 (78) 99 02/26/17 15:00 84 02/26/17 14:15 98.1 95 14 125/58 (80) 100 Nasal Cannula 3 02/26/17 14:00 97 14 113/60 (77) 97 Nasal Cannula 3 02/26/17 13:45 80 14 97/57 (70) 97 Nasal Cannula 3 02/26/17 13:30 80 14 97/52 (67) 99 Nasal Cannula 3 02/26/17 13:15 81 14 97/56 (70) 98 Nasal Cannula 3 02/26/17 13:00 83 14 91/52 (65) 97 Nasal Cannula 4 02/26/17 12:55 97.8 84 14 88/53 (65) 96 Nasal Cannula 4 02/27/17 02/27/17 02/27/17 07:00 15:00 23:00 Intake Total 655 ml Output Total 2300 ml Balance -1645 ml Exam: R groin soft, appropriately tender R LE warm Leg incision c/d/i Pulses: Strong DP Doppler signal R foot Laboratory Laboratory Tests Test 02/27/17 04:10 White Blood Count 9.6 Red Blood Count 3.56 Hemoglobin 11.1 Hematocrit 32.3 Mean Corpuscular Volume 90.7 Mean Corpuscular Hemoglobin 31.2 Mean Corpuscular Hemoglobin Concent 34.4 Red Cell Distribution Width 14.9 Platelet Count 235 Mean Platelet Volume 7.5 Blood Urea Nitrogen 11 Creatinine 0.78 Random Glucose 149 Calcium Level 8.0 Sodium Level 138 Potassium Level 3.7 Chloride Level 103 Carbon Dioxide Level 29.0 Anion Gap 6 Estimat Glomerular Filtration Rate 100 Assessment and Plan Plan POD#1 s/p R groin reconstruction, fem-BK pop and iliac stent 1. Continue pulse checks 2. Reg diet 3. Resume all home meds 4. OOB/PT 5. Manriquez out Discharge Planning 3-4 days, pending pain control and mobility [phone] Tereso Renee MD Feb 27, 2017 09:02
[2017-02-27] MEDS: ASPIRIN 325 MG TAB PO SCH (09:05)
[2017-02-27] MEDS: ISOSORBIDE MONONITRATE 30 MG TAB PO SCH (09:05)
[2017-02-27] MEDS: CLOPIDOGREL 75 MG TAB PO SCH (09:05)
[2017-02-27] MEDS: TRIAMTERENE/HCTZ 37.5 MG/25 MG TAB PO SCH (09:05)
[2017-02-27] MEDS: PANTOPRAZOLE SOD 20 MG DELAYED RELEASE TAB PO SCH (09:06)
[2017-02-27] MEDS: DOCUSATE SODIUM 50 MG/SENNA 8.6 MG TAB PO SCH ×2 (09:06→20:28)
[2017-02-27] MEDS: QUEtiapine FUMARATE 200 MG TAB PO SCH ×2 (09:06→20:28)
[2017-02-27] MEDS: LISINOPRIL 20 MG TAB PO SCH (09:06)
[2017-02-27] MEDS: GABAPENTIN 300 MG CAP PO SCH ×2 (09:06→20:28)
[2017-02-27] MEDS: INSULIN ASPART SUPPLEMENTAL SCALE SQ SCH ×4 (09:45→22:17)
[2017-02-27] MEDS: SODIUM CHLOR 0.9% 1000 ML INJ 1,000 ML IV SCH ×5 (12:15→17:15)
[2017-02-27] MEDS: ENOXAPARIN SODIUM 30 MG/0.3 ML SYRINGE SQ SCH (12:35)
[2017-02-27 16:10] LABS: HEMOGLOBIN A1a 1.3 %; HEMOGLOBIN Ao 82.8 %; HEMOGLOBIN LA1C 2.3 %; HEMOGLOBIN P3 4.1 %
[2017-02-27] MEDS: ACETAMINOPHEN 500 MG CPLT PO PRN (17:02)
[2017-02-27 17:12] LABS: BASOPHIL % 0.2 % (0.0-2.0); EOSINOPHIL % 0.5 % (0.0-4.0); HEMATOCRIT 31.1 % (39.0-51.0); HEMO FLAGS DIFF FINAL; LYMPH % 9.9 % (9.0-44.0); MEAN CORPUSCULAR HEMOGLOBIN 31.9 PG (27.0-34.0); MEAN CORPUSCULAR HGB CONC 34.3 % (32.0-36.0); MONO % 9.7 % (0.0-8.0); NEUT % 79.7 % (16.0-70.0); PLATELET COUNT 210 TH/MM3 (150-450); RED BLOOD COUNT 3.34 MIL/MM3 (4.50-5.90); RED CELL DISTRIBUTION WIDTH 14.7 % (11.6-17.2); WHITE BLOOD COUNT 10.1 TH/MM3 (4.0-11.0)
[2017-02-27] MEDS: TAMSULOSIN HCL 0.4 MG CAP PO SCH (20:27)
[2017-02-27] MEDS: MIRTAZAPINE 15 MG TAB PO SCH (20:28)
[2017-02-27] MEDS: ATORVASTATIN 40 MG TAB PO SCH (20:28)
[2017-02-28] VITALS (26 sets, daily range): BP systolic 104–149; BP diastolic 53–67; PULSE 108–142; RESP 12–20; TEMP 98.9–99.7; O2SAT 94–97
[2017-02-28] MEDS: HYDROmorphone HCL 2 MG TAB PO PRN ×2 (04:06→20:33)
[2017-02-28] MEDS: MORPHINE SULFATE 4 MG/ML INJ IV PUSH PRN ×3 (04:06→20:36)
[2017-02-28 05:45] LABS: HEMATOCRIT 29.6 % (39.0-51.0); MEAN CELL VOLUME 91.7 FL (80.0-100.0); MEAN CORPUSCULAR HGB CONC 33.9 % (32.0-36.0); PLATELET COUNT 204 TH/MM3 (150-450); RED BLOOD COUNT 3.23 MIL/MM3 (4.50-5.90); RED CELL DISTRIBUTION WIDTH 14.8 % (11.6-17.2); REVIEW FLAG FINAL; WHITE BLOOD COUNT 10.2 TH/MM3 (4.0-11.0)
[2017-02-28 06:15] LABS: POTASSIUM 3.7 MEQ/L (3.5-5.1)
--- NOTE | 2017-02-28 06:46 | PD.VS.PN ---
Subjective POD #: 2 Procedure(s): R iliofemoral bypass, R fem-BK pop and EIA stent Subjective/Hospital Course Pt c/o pain in the R groin. Foot warm. Sharif po. Objective Vitals/I&O Date Time Temp Pulse Resp B/P (MAP) Pulse Ox O2 Delivery O2 Flow Rate FiO2 02/28/17 06:10 117 02/28/17 05:12 116 02/28/17 05:09 18 02/28/17 04:30 18 02/28/17 03:11 119 02/28/17 03:00 98.9 120 20 115/53 (73) 95 02/28/17 02:02 120 02/28/17 01:05 18 02/28/17 01:00 121 02/27/17 23:00 105 02/27/17 23:00 98.3 106 17 136/59 (84) 95 02/27/17 21:00 115 02/27/17 19:00 98.9 105 17 136/63 (87) 96 02/27/17 19:00 121 02/27/17 18:00 116 02/27/17 17:48 100.2 02/27/17 17:48 18 02/27/17 17:00 114 02/27/17 16:25 101.4 02/27/17 16:00 112 02/27/17 15:00 114 20 119/58 (78) 95 02/27/17 15:00 114 02/27/17 14:00 123 02/27/17 13:00 117 02/27/17 12:00 126 02/27/17 11:00 136 02/27/17 11:00 99.7 134 20 103/57 (72) 96 02/27/17 10:00 126 02/27/17 09:00 122 02/27/17 08:00 112 02/27/17 07:15 100.1 112 16 123/66 (85) 96 02/27/17 07:00 112 02/28/17 02/28/17 02/28/17 07:00 15:00 23:00 Intake Total 240 ml Output Total 550 ml Balance -310 ml Exam: R groin soft, minimally tender to palpation foot warm motor intact Laboratory Laboratory Tests Test 02/27/17 17:03 02/28/17 05:30 White Blood Count 10.1 10.2 Red Blood Count 3.34 3.23 Hemoglobin 10.7 10.0 Hematocrit 31.1 29.6 Mean Corpuscular Volume 93.0 91.7 Mean Corpuscular Hemoglobin 31.9 31.0 Mean Corpuscular Hemoglobin Concent 34.3 33.9 Red Cell Distribution Width 14.7 14.8 Platelet Count 210 204 Mean Platelet Volume 7.5 7.7 Neutrophils (%) (Auto) 79.7 Lymphocytes (%) (Auto) 9.9 Monocytes (%) (Auto) 9.7 Eosinophils (%) (Auto) 0.5 Basophils (%) (Auto) 0.2 Neutrophils # (Auto) 8.0 Lymphocytes # (Auto) 1.0 Monocytes # (Auto) 1.0 Eosinophils # (Auto) 0.0 Basophils # (Auto) 0.0 CBC Comment DIFF FINAL Differential Comment Blood Urea Nitrogen 13 Creatinine 0.95 Random Glucose 156 Calcium Level 7.9 Sodium Level 138 Potassium Level 3.7 Chloride Level 105 Carbon Dioxide Level 28.0 Anion Gap 5 Estimat Glomerular Filtration Rate 80 Assessment and Plan Plan POD#2 s/p R groin reconstruction, fem-BK pop and iliac stent 1. Continue pulse checks 2. OOB/PT 3. Hct stable. 4. Increased pain meds 5. Consulted nurses educator given A1c 6.8 Discharge Planning 2-3 days, pending pain control and mobility [phone] Tereso Renee MD Feb 28, 2017 06:46
[2017-02-28] MEDS: BUDESONIDE-FORMOTEROL 160/4.5 MCG INHALER INH SCH ×2 (09:00→21:00)
[2017-02-28] MEDS: INSULIN ASPART SUPPLEMENTAL SCALE SQ SCH ×2 (09:05→12:46)
[2017-02-28] MEDS: LISINOPRIL 20 MG TAB PO SCH (09:06)
[2017-02-28] MEDS: ISOSORBIDE MONONITRATE 30 MG TAB PO SCH (09:06)
[2017-02-28] MEDS: PANTOPRAZOLE SOD 20 MG DELAYED RELEASE TAB PO SCH (09:06)
[2017-02-28] MEDS: DOCUSATE SODIUM 50 MG/SENNA 8.6 MG TAB PO SCH ×2 (09:06→20:33)
[2017-02-28] MEDS: TRIAMTERENE/HCTZ 37.5 MG/25 MG TAB PO SCH (09:06)
[2017-02-28] MEDS: GABAPENTIN 300 MG CAP PO SCH ×2 (09:07→20:33)
[2017-02-28] MEDS: QUEtiapine FUMARATE 200 MG TAB PO SCH ×2 (09:07→20:33)
[2017-02-28] MEDS: ASPIRIN 325 MG TAB PO SCH (09:07)
[2017-02-28] MEDS: CLOPIDOGREL 75 MG TAB PO SCH (09:07)
[2017-02-28] MEDS: ENOXAPARIN SODIUM 30 MG/0.3 ML SYRINGE SQ SCH (12:20)
[2017-02-28] MEDS: HIGH DOSE INSULIN NOVOLOG SUPPLEMENTAL SCALE SQ SCH ×2 (18:33→21:00)
[2017-02-28] MEDS: MIRTAZAPINE 15 MG TAB PO SCH (20:33)
[2017-02-28] MEDS: TAMSULOSIN HCL 0.4 MG CAP PO SCH (20:33)
[2017-02-28] MEDS: ATORVASTATIN 40 MG TAB PO SCH (20:33)
[2017-02-28] MEDS: INSULIN DETEMIR 100 UNITS/ML VIAL SQ SCH (21:00)
[2017-02-28] MEDS: hydrOXYzine HCL 50 MG TAB PO PRN (22:00)
[2017-03-01] VITALS (26 sets, daily range): BP systolic 89–145; BP diastolic 52–68; PULSE 78–121; RESP 16–18; TEMP 98.4–99; O2SAT 91–97
[2017-03-01] MEDS: MORPHINE SULFATE 4 MG/ML INJ IV PUSH PRN ×2 (02:23→11:37)
[2017-03-01] MEDS: HYDROmorphone HCL 2 MG TAB PO PRN (02:24)
[2017-03-01] MEDS: BUDESONIDE-FORMOTEROL 160/4.5 MCG INHALER INH SCH ×2 (08:14→21:00)
[2017-03-01] MEDS: DOCUSATE SODIUM 50 MG/SENNA 8.6 MG TAB PO SCH ×2 (08:15→20:59)
[2017-03-01] MEDS: TRIAMTERENE/HCTZ 37.5 MG/25 MG TAB PO SCH (08:16)
[2017-03-01] MEDS: CLOPIDOGREL 75 MG TAB PO SCH (08:16)
[2017-03-01] MEDS: QUEtiapine FUMARATE 200 MG TAB PO SCH ×2 (08:16→21:00)
[2017-03-01] MEDS: ISOSORBIDE MONONITRATE 30 MG TAB PO SCH (08:16)
[2017-03-01] MEDS: ASPIRIN 325 MG TAB PO SCH (08:17)
[2017-03-01] MEDS: LISINOPRIL 20 MG TAB PO SCH (08:17)
[2017-03-01] MEDS: GABAPENTIN 300 MG CAP PO SCH ×2 (08:17→20:59)
[2017-03-01] MEDS: INSULIN DETEMIR 100 UNITS/ML VIAL SQ SCH ×2 (08:26→21:00)
[2017-03-01] MEDS: HIGH DOSE INSULIN NOVOLOG SUPPLEMENTAL SCALE SQ SCH ×4 (08:26→21:00)
--- NOTE | 2017-03-01 09:55 | PD.VS.PN ---
Subjective POD #: 3 Procedure(s): R iliofemoral bypass, R fem-BK pop and EIA stent Subjective/Hospital Course Pt c/o pain in the R groin/hip that is exacerbated by movement BLE warm w/ motor intact Pain controlled Objective Vitals/I&O Date Time Temp Pulse Resp B/P (MAP) Pulse Ox O2 Delivery O2 Flow Rate FiO2 03/01/17 09:00 110 03/01/17 08:00 110 03/01/17 08:00 98.9 116 16 145/65 (91) 91 03/01/17 07:00 111 03/01/17 06:00 112 03/01/17 05:00 114 03/01/17 04:00 112 03/01/17 03:00 99.0 116 16 117/55 (75) 91 03/01/17 03:00 115 03/01/17 02:00 116 03/01/17 01:00 116 03/01/17 00:00 110 02/28/17 23:00 114 02/28/17 23:00 99.2 108 12 132/63 (86) 95 02/28/17 22:00 114 02/28/17 21:00 116 02/28/17 20:00 112 02/28/17 19:20 99.2 112 16 138/63 (88) 94 02/28/17 19:00 110 02/28/17 18:00 117 02/28/17 17:00 112 02/28/17 16:00 111 02/28/17 15:00 111 16 109/53 (71) 95 02/28/17 15:00 115 02/28/17 14:00 142 02/28/17 13:00 138 02/28/17 12:44 18 02/28/17 12:00 119 02/28/17 11:15 99.7 122 18 104/55 (71) 97 02/28/17 11:00 121 02/28/17 10:00 120 03/01/17 03/01/17 03/01/17 07:00 15:00 23:00 Intake Total 240 ml Output Total 900 ml Balance -660 ml Exam: GENERAL: A&OX3,NAD,GCS15 SKIN: Warm and dry/ right groin w/ provena wound vac in place/ NO Swelling or hematoma noted GASTROINTESTINAL: Abdomen soft, Pt TTP R hip region MUSCULOSKELETAL: No cyanosis, or edema. R DP/PT biphasic Incisions: incision to R calf intact w/o R/D/S/O Assessment and Plan Plan POD#3 S/p R groin reconstruction/fem-BK pop and iliac stent Pt doing well reported he ambulated yesterday a few times Pt c/o Right hip groin pain- worse w/ movement (neuropathic in presentation) Pain controlled Plan Continue pulse checks Continue PT/OOB/ambulation Continue pain control I/S q4h D/C planning Linda BURNETT [facility] [phone] Discharge Planning 1-2-pending pain control and mobility [phone] Linda Melchor Mar 01, 2017 09:55
[2017-03-01] MEDS: METOPROLOL TARTRATE 25 MG TAB PO SCH ×2 (10:58→21:00)
[2017-03-01] MEDS: PANTOPRAZOLE SOD 20 MG DELAYED RELEASE TAB PO SCH (10:58)
[2017-03-01] MEDS: INSULIN ASPART 1,000 UNITS/10 ML VIAL SQ SCH ×2 (12:00→17:33)
[2017-03-01] MEDS: ATORVASTATIN 40 MG TAB PO SCH (20:59)
[2017-03-01] MEDS: TAMSULOSIN HCL 0.4 MG CAP PO SCH (20:59)
[2017-03-01] MEDS: MIRTAZAPINE 15 MG TAB PO SCH (20:59)
[2017-03-02] VITALS (28 sets, daily range): BP systolic 95–120; BP diastolic 50–68; PULSE 82–107; RESP 18–20; TEMP 98–98.7; O2SAT 95–100
[2017-03-02] MEDS: HYDROmorphone HCL 2 MG TAB PO PRN ×4 (02:35→20:10)
[2017-03-02] MEDS: MORPHINE SULFATE 4 MG/ML INJ IV PUSH PRN ×3 (02:53→20:11)
[2017-03-02] MEDS: HIGH DOSE INSULIN NOVOLOG SUPPLEMENTAL SCALE SQ SCH ×4 (08:00→20:26)
[2017-03-02] MEDS: CLOPIDOGREL 75 MG TAB PO SCH (09:29)
[2017-03-02] MEDS: ASPIRIN 325 MG TAB PO SCH (09:29)
[2017-03-02] MEDS: DOCUSATE SODIUM 50 MG/SENNA 8.6 MG TAB PO SCH ×2 (09:29→20:10)
[2017-03-02] MEDS: PANTOPRAZOLE SOD 20 MG DELAYED RELEASE TAB PO SCH (09:30)
[2017-03-02] MEDS: QUEtiapine FUMARATE 200 MG TAB PO SCH ×2 (09:30→20:10)
[2017-03-02] MEDS: LISINOPRIL 20 MG TAB PO SCH (09:30)
[2017-03-02] MEDS: ISOSORBIDE MONONITRATE 30 MG TAB PO SCH (09:30)
[2017-03-02] MEDS: GABAPENTIN 300 MG CAP PO SCH ×2 (09:30→20:10)
[2017-03-02] MEDS: METOPROLOL TARTRATE 25 MG TAB PO SCH ×2 (09:30→20:10)
[2017-03-02] MEDS: TRIAMTERENE/HCTZ 37.5 MG/25 MG TAB PO SCH (09:31)
[2017-03-02] MEDS: INSULIN DETEMIR 100 UNITS/ML VIAL SQ SCH ×2 (09:31→20:27)
[2017-03-02] MEDS: INSULIN ASPART 1,000 UNITS/10 ML VIAL SQ SCH ×4 (09:32→20:26)
[2017-03-02] MEDS: BUDESONIDE-FORMOTEROL 160/4.5 MCG INHALER INH SCH ×2 (09:33→21:00)
[2017-03-02] MEDS: ENOXAPARIN SODIUM 40 MG/0.4 ML SYRINGE SQ SCH (09:33)
--- NOTE | 2017-03-02 10:03 | PD.VS.PN ---
Subjective POD #: 4 Procedure(s): R iliofemoral bypass, R fem-BK pop and EIA stent Subjective/Hospital Course Pt c/o improved pain in the R groin/hip that is exacerbated by movement BLE warm w/ motor intact Pain controlled Provena wound vac removed this am from the R groin Incision intact and well approximated w/o D/O/S Objective Vitals/I&O Date Time Temp Pulse Resp B/P (MAP) Pulse Ox O2 Delivery O2 Flow Rate FiO2 03/02/17 09:00 100 03/02/17 08:00 98 03/02/17 07:45 98.7 107 20 111/68 (82) 97 03/02/17 07:00 107 03/02/17 06:00 95 03/02/17 05:00 100 03/02/17 04:00 98.2 95 20 116/58 (77) 97 03/02/17 04:00 82 03/02/17 03:00 95 03/02/17 02:07 98 03/02/17 01:00 98 03/02/17 00:00 85 03/02/17 00:00 98.0 85 20 109/59 (76) 98 03/01/17 23:00 85 03/01/17 22:00 78 03/01/17 21:00 92 03/01/17 20:00 98.4 100 18 111/68 (82) 97 03/01/17 20:00 102 03/01/17 19:00 100 03/01/17 18:00 102 03/01/17 17:00 100 03/01/17 16:00 102 03/01/17 15:58 98.5 116 16 89/52 (64) 91 03/01/17 15:00 90 03/01/17 14:00 106 03/01/17 13:00 112 03/01/17 12:00 108 03/01/17 11:42 20 03/01/17 11:24 98.6 116 16 118/62 (80) 91 03/01/17 11:00 121 03/01/17 10:00 108 03/02/17 03/02/17 03/02/17 07:00 15:00 23:00 Intake Total 640 ml Output Total 550 ml Balance 90 ml Exam: GENERAL: A&OX3,NAD,GCS15 SKIN: Warm and dry/ right groin incision intact with mild erythema at the incision line/ NO Swelling or hematoma noted GASTROINTESTINAL: Abdomen soft, Pt TTP R hip region/ +BS MUSCULOSKELETAL: No cyanosis, or edema. R DP/PT biphasic Incisions: incision to R calf intact w/o R/D/S/O Assessment and Plan Plan POD#4 S/p R groin reconstruction/fem-BK pop and iliac stent Pt doing well reported he ambulated yesterday a few times Pt c/o Right hip groin pain- worse w/ movement (neuropathic in presentation) Pain controlled Plan D/C to Rehab today Walker ordered Arranged OP F/U Linda BURNETT [facility]/[employer] [phone] Discharge Planning Today to a SNF [phone] Linda Melchor Mar 02, 2017 10:02
[2017-03-02] MEDS ORDERED: PERC5TAB12 PO (10:14)
--- NOTE | 2017-03-02 10:20 | PD.VS.DC ---
Discharge Summary Admission Date: Feb 26, 2017 at 05:27 Discharge Date: Mar 02, 2017 Admission Diagnosis: (1) PAD (peripheral artery disease) Discharge Diagnosis: (1) PAD (peripheral artery disease) ICD Codes: I73.9 - Peripheral vascular disease, unspecified Brief History from admission 66 yo male with PAD and R LE rest pain. Has had multiple R LE endovascular interventions, all elsewhere. Complains of pain every night. No wounds and no motor dysfunction. Procedure(s): R iliofemoral bypass, R fem-BK pop and EIA stent Significant Findings ENERAL: A&OX3,NAD,GCS15 SKIN: Warm and dry/ right groin incision intact/well approximated/ NO Swelling or hematoma noted GASTROINTESTINAL: Abdomen soft, Pt TTP R hip region/+BS MUSCULOSKELETAL: No cyanosis, or edema. R DP/PT biphasic Incisions: incision to R calf intact w/o R/D/S/O Laboratory Tests Test 02/27/17 17:03 02/28/17 05:30 Red Blood Count 3.34 MIL/MM3 (4.50-5.90) 3.23 MIL/MM3 (4.50-5.90) Hemoglobin 10.7 GM/DL (13.0-17.0) 10.0 GM/DL (13.0-17.0) Hematocrit 31.1 % (39.0-51.0) 29.6 % (39.0-51.0) Neutrophils (%) (Auto) 79.7 % (16.0-70.0) Monocytes (%) (Auto) 9.7 % (0.0-8.0) Neutrophils # (Auto) 8.0 TH/MM3 (1.8-7.7) Monocytes # (Auto) 1.0 TH/MM3 (0-0.9) Random Glucose 156 MG/DL (74-106) Calcium Level 7.9 MG/DL (8.5-10.1) Estimat Glomerular Filtration Rate 80 ML/MIN (>89) Hospital Course: 66 yo male with PAD and R LE rest pain. Hx of multiple R LE endovascular interventions, all elsewhere. Complains of pain every night. No wounds and no motor dysfunction. Pt w/o complications C/o right hip neuropathic pain with movement Labs reviewed clear for D/C to a SNF for continued rehabilitative services Arranged OP F/U in 3W with a surveillance JP Vital Signs, 24 Hour Date Time Temp Pulse Resp B/P (MAP) Pulse Ox O2 Delivery O2 Flow Rate FiO2 03/02/17 09:00 100 03/02/17 08:00 98 03/02/17 07:45 98.7 107 20 111/68 (82) 97 03/02/17 07:00 107 03/02/17 06:00 95 03/02/17 05:00 100 03/02/17 04:00 98.2 95 20 116/58 (77) 97 03/02/17 04:00 82 03/02/17 03:00 95 03/02/17 02:07 98 03/02/17 01:00 98 03/02/17 00:00 85 03/02/17 00:00 98.0 85 20 109/59 (76) 98 03/01/17 23:00 85 03/01/17 22:00 78 03/01/17 21:00 92 03/01/17 20:00 98.4 100 18 111/68 (82) 97 03/01/17 20:00 102 03/01/17 19:00 100 03/01/17 18:00 102 03/01/17 17:00 100 03/01/17 16:00 102 03/01/17 15:58 98.5 116 16 89/52 (64) 91 03/01/17 15:00 90 03/01/17 14:00 106 03/01/17 13:00 112 03/01/17 12:00 108 03/01/17 11:42 20 03/01/17 11:24 98.6 116 16 118/62 (80) 91 03/01/17 11:00 121 Allergies Coded Allergies fentanyl (Verified Allergy, Severe, 02/26/17) severe agitation and aggresion Intake/Outtake 03/02/17 03/02/17 11:00 23:00 Intake Total 640 ml Output Total 550 ml Balance 90 ml Orders - Linda Melchor Procedure Category Date Status Time Consult Pt Eval & PT 03/01/17 Logged Treat 12:10 Ot Request For Service OT 11/30/17 Logged 12:10 Attending Discharge DISCHARGE 03/02/17 Transmitted Order Active Scripts Active Reported Lantus Inj (Insulin Glargine) 1,000 Unit/10 Ml Vial 1 Units SQ HS Fish Oil 1,000 mg Softgel ([place]-3/Dha/Epa/Fish Oil) 1,000 Mg (120 Mg-180 Mg) Capsule Triamterene-Hydrochlorothiazide 37.5-25 Mg Tab 1 Tab PO DAILY Tamsulosin (Tamsulosin HCl) 0.4 Mg Cap 0.4 Mg PO HS Quetiapine (Quetiapine Fumarate) 200 Mg Tab 200 Mg PO BID Omeprazole 20 Mg Tab 20 Mg PO DAILY Novolin R Inj (Insulin Human Regular) 1,000 Unit/10 Ml Vial 30 Units SQ TID Mirtazapine 15 Mg Tab 15 Mg PO HS Metformin ER (Metformin HCl) 1,000 Mg Cameron 1,000 Mg PO DAILY With evening meal Allergy (Loratadine) 10 Mg Tab Lisinopril 40 Mg Tab 40 Mg PO DAILY Isosorbide Mononitrate ER (Isosorbide Mononitrate) 30 Mg Cameron 30 Mg PO DAILY Hydroxyzine HCl 50 Mg Tab 50 Mg PO HS PRN Gabapentin 600 Mg Tab 600 Mg PO BID Eliquis (Apixaban) 5 Mg Tab 5 Mg PO BID Plavix (Clopidogrel Bisulfate) 75 Mg Tab 75 Mg PO DAILY Lipitor (Atorvastatin Calcium) 40 Mg Tab 40 Mg PO HS Aspirin 81 Mg Chew 81 Mg CHEW DAILY Apriso (Mesalamine) 0.375 Gm Caper 1.5 Gm PO DAILY Amlodipine (Amlodipine Besylate) 10 Mg Tab 10 Mg PO DAILY Advair Diskus Inh (Fluticasone-Salmeterol Inh) 250-50 Mcg/Blist Aer 1 Puff INH BID Rinse mouth after use. Discharge Condition: Good Discharge Disposition: Discharge to SNF Discharge Instructions: Arranged out pt f/u in 3W with a surveillance JP A daily walking regimen is encouraged Activities as tolerated MAY SHOWER NO TUB Baths or swimming until incision is fully healed Leave incision OPEN to air Linda BURNETT [facility]/[place] [phone] Any questions or concerns: Call [facility] at [facility] [phone] Linda Melchor Mar 02, 2017 10:20
[2017-03-02] MEDS: LACTULOSE SYRUP 20 GM/30 ML CUP PO PRN (14:09)
[2017-03-02] MEDS: ONDANSETRON HCL 4 MG/2 ML VIAL IV PUSH PRN (15:00)
[2017-03-02] MEDS: MIRTAZAPINE 15 MG TAB PO SCH (20:10)
[2017-03-02] MEDS: TAMSULOSIN HCL 0.4 MG CAP PO SCH (20:11)
[2017-03-02] MEDS: ATORVASTATIN 40 MG TAB PO SCH (20:11)
[2017-03-03] VITALS (29 sets, daily range): BP systolic 99–121; BP diastolic 53–62; PULSE 78–110; RESP 18–20; TEMP 98.1–98.8; O2SAT 92–99
[2017-03-03] MEDS: MORPHINE SULFATE 4 MG/ML INJ IV PUSH PRN ×2 (02:54→21:36)
[2017-03-03] MEDS: HIGH DOSE INSULIN NOVOLOG SUPPLEMENTAL SCALE SQ SCH ×4 (08:31→21:37)
[2017-03-03] MEDS: INSULIN DETEMIR 100 UNITS/ML VIAL SQ SCH ×2 (08:31→21:37)
[2017-03-03] MEDS: HYDROmorphone HCL 2 MG TAB PO PRN ×4 (08:32→21:31)
[2017-03-03] MEDS: TRIAMTERENE/HCTZ 37.5 MG/25 MG TAB PO SCH (08:32)
[2017-03-03] MEDS: LISINOPRIL 20 MG TAB PO SCH (08:35)
[2017-03-03] MEDS: ASPIRIN 325 MG TAB PO SCH (08:35)
[2017-03-03] MEDS: QUEtiapine FUMARATE 200 MG TAB PO SCH ×2 (08:36→20:12)
[2017-03-03] MEDS: GABAPENTIN 300 MG CAP PO SCH ×2 (08:36→20:12)
[2017-03-03] MEDS: METOPROLOL TARTRATE 25 MG TAB PO SCH ×2 (08:36→20:12)
[2017-03-03] MEDS: ISOSORBIDE MONONITRATE 30 MG TAB PO SCH (08:37)
[2017-03-03] MEDS: DOCUSATE SODIUM 50 MG/SENNA 8.6 MG TAB PO SCH ×2 (08:37→20:12)
[2017-03-03] MEDS: PANTOPRAZOLE SOD 20 MG DELAYED RELEASE TAB PO SCH (08:37)
[2017-03-03] MEDS: CLOPIDOGREL 75 MG TAB PO SCH (08:37)
[2017-03-03] MEDS: ENOXAPARIN SODIUM 40 MG/0.4 ML SYRINGE SQ SCH (08:39)
--- NOTE | 2017-03-03 09:19 | PD.VS.PN ---
Subjective POD #: 5 Procedure(s): R iliofemoral bypass, R fem-BK pop and EIA stent Subjective/Hospital Course Still w hyperaethesia on the R groin but otherwise looks great ambulating luis po pain controlled with po meds Objective Vitals/I&O Date Time Temp Pulse Resp B/P (MAP) Pulse Ox O2 Delivery O2 Flow Rate FiO2 03/03/17 08:28 98.4 87 20 121/57 (78) 98 03/03/17 06:45 82 03/03/17 05:03 90 03/03/17 04:09 83 03/03/17 03:15 98.5 86 19 117/62 (80) 99 03/03/17 03:15 87 03/03/17 02:04 87 03/03/17 01:59 83 03/03/17 00:12 82 03/02/17 23:33 84 03/02/17 23:25 98.5 89 20 102/55 (71) 95 03/02/17 22:19 85 03/02/17 21:15 106 03/02/17 20:00 98 03/02/17 19:30 98.7 96 20 95/52 (66) 100 03/02/17 19:25 92 03/02/17 18:00 82 03/02/17 17:00 88 03/02/17 15:34 98.6 98 18 101/50 (67) 96 03/02/17 15:17 20 03/02/17 15:00 92 03/02/17 14:00 88 03/02/17 13:00 88 03/02/17 12:00 92 03/02/17 11:44 98.4 100 18 120/61 (80) 97 03/02/17 11:00 86 03/02/17 10:00 98 03/03/17 03/03/17 03/03/17 07:00 15:00 23:00 Intake Total 360 ml Output Total 1400 ml Balance -1040 ml Exam: R groin with ecchymoses R leg incision c/d/i foot ok Assessment and Plan Assessment: (1) PAD (peripheral artery disease) Plan POD#5 Looks good, every day improved pain and mobility Ready for d/c to rehab today Discharge Planning Today to a SNF [phone] Tereso Renee MD Mar 03, 2017 09:19
[2017-03-03] MEDS: BUDESONIDE-FORMOTEROL 160/4.5 MCG INHALER INH SCH ×2 (10:00→20:13)
[2017-03-03] MEDS: INSULIN ASPART 1,000 UNITS/10 ML VIAL SQ SCH ×2 (12:30→17:35)
[2017-03-03] MEDS: ATORVASTATIN 40 MG TAB PO SCH (20:12)
[2017-03-03] MEDS: TAMSULOSIN HCL 0.4 MG CAP PO SCH (20:12)
[2017-03-03] MEDS: MIRTAZAPINE 15 MG TAB PO SCH (20:12)
[2017-03-03] MEDS: hydrOXYzine HCL 50 MG TAB PO PRN (21:30)
[2017-03-04] VITALS (25 sets, daily range): BP systolic 100–120; BP diastolic 52–64; PULSE 76–96; RESP 16–24; TEMP 98–100.6; O2SAT 86–99
[2017-03-04] MEDS: MORPHINE SULFATE 4 MG/ML INJ IV PUSH PRN (00:18)
[2017-03-04] MEDS: HYDROmorphone HCL 2 MG TAB PO PRN ×2 (05:30→12:27)
[2017-03-04] MEDS: HIGH DOSE INSULIN NOVOLOG SUPPLEMENTAL SCALE SQ SCH ×4 (07:54→21:00)
[2017-03-04] MEDS: INSULIN ASPART 1,000 UNITS/10 ML VIAL SQ SCH ×2 (08:54→12:26)
[2017-03-04] MEDS: ENOXAPARIN SODIUM 40 MG/0.4 ML SYRINGE SQ SCH (08:54)
[2017-03-04] MEDS: ACETAMINOPHEN 500 MG CPLT PO PRN (08:55)
[2017-03-04] MEDS: INSULIN DETEMIR 100 UNITS/ML VIAL SQ SCH (08:55)
[2017-03-04] MEDS: GABAPENTIN 300 MG CAP PO SCH ×2 (08:56→21:29)
[2017-03-04] MEDS: ASPIRIN 325 MG TAB PO SCH (08:56)
[2017-03-04] MEDS: CLOPIDOGREL 75 MG TAB PO SCH (08:56)
[2017-03-04] MEDS: BUDESONIDE-FORMOTEROL 160/4.5 MCG INHALER INH SCH ×2 (08:56→21:00)
[2017-03-04] MEDS: DOCUSATE SODIUM 50 MG/SENNA 8.6 MG TAB PO SCH ×2 (08:56→21:29)
[2017-03-04] MEDS: QUEtiapine FUMARATE 200 MG TAB PO SCH ×2 (09:05→21:31)
[2017-03-04] MEDS: LACTULOSE SYRUP 20 GM/30 ML CUP PO PRN (09:05)
[2017-03-04] MEDS: LISINOPRIL 20 MG TAB PO SCH (09:05)
[2017-03-04] MEDS: TRIAMTERENE/HCTZ 37.5 MG/25 MG TAB PO SCH (09:05)
[2017-03-04] MEDS: PANTOPRAZOLE SOD 20 MG DELAYED RELEASE TAB PO SCH (09:06)
[2017-03-04] MEDS: METOPROLOL TARTRATE 25 MG TAB PO SCH ×2 (09:06→21:29)
[2017-03-04] MEDS: ISOSORBIDE MONONITRATE 30 MG TAB PO SCH (09:06)
[2017-03-04] MEDS ORDERED: MINERAL OIL ENEMA 118 ML BTL RECTAL PRN (12:30)
[2017-03-04 13:34] LABS: AUTOMATED NEUTROPHIL # 6.2 TH/MM3 (1.8-7.7); BASOPHIL % 0.2 % (0.0-2.0); EOSINOPHIL # 0.2 TH/MM3 (0-0.4); EOSINOPHIL % 2.4 % (0.0-4.0); HEMATOCRIT 32.4 % (39.0-51.0); HEMO FLAGS DIFF FINAL; LYMPH % 15.4 % (9.0-44.0); LYMPHOCYTE # 1.3 TH/MM3 (1.0-4.8); MEAN CELL VOLUME 92.9 FL (80.0-100.0); MEAN CORPUSCULAR HEMOGLOBIN 30.7 PG (27.0-34.0); MONO % 8.1 % (0.0-8.0); NEUT % 73.9 % (16.0-70.0); PLATELET COUNT 393 TH/MM3 (150-450); RED BLOOD COUNT 3.48 MIL/MM3 (4.50-5.90); RED CELL DISTRIBUTION WIDTH 14.4 % (11.6-17.2); WHITE BLOOD COUNT 8.5 TH/MM3 (4.0-11.0)
[2017-03-04] MEDS: ONDANSETRON HCL 4 MG/2 ML VIAL IV PUSH PRN (13:35)
[2017-03-04 13:52] LABS: BLOOD GAS BASE EXCESS 0.1 mmol/L (-2-2); BLOOD GAS CARBOXYHEMOGLOBIN 0.9 % (0-4); BLOOD GAS HCO3 23 mmol/L (22-26); BLOOD GAS METHEMOGLOBIN 1.6 % (0-2); BLOOD GAS O2 HGB SATURATION 96 % (90-100); BLOOD GAS OXYGEN CONTENT 14.3 Vol % (12.0-20.0); BLOOD GAS PCO2 31 mmHg (38-42); BLOOD GAS PO2 138 mmHg (61-120); BLOOD GAS TOTAL HGB 10.4 G/DL (12.0-16.0); TEMP CORR TO 98.6
[2017-03-04 13:53] LABS: CRITICAL VALUE NO; DRAW SITE RT RADIAL; FIO2 28 %; LITER FLOW 2 L/M; NUMBER OF ARTERIAL PUNCTURES 1; OXYGEN DEVICE NASAL CANNULA; STAT YES; ULNAR PULSE PRESENT
[2017-03-04] MEDS ORDERED: SODIUM CHLORID 0.9% 500 ML INJ 500 ML IV ONE (14:30)
--- NOTE | 2017-03-04 14:48 | RADRPT ---
EXAM DATE/TIME: 03/04/2017 13:38 [place] COMPARISON: No previous studies available for comparison. INDICATIONS : Nausea, vomiting and abdominal pain. MEDICAL HISTORY : Cardiovascular disease. SURGICAL HISTORY : None. ENCOUNTER: Initial ACUITY: 1 day PAIN SCORE: 10/10 LOCATION: Abdomen FINDINGS: Air is seen in the sigmoid which is mildly distended. Nondistended loop of air-filled small bowel in the left upper quadrant. No free air or pneumatosis. No abnormal calcifications. Right common iliac s tent in place. Surgical clips in the pelvis. Bony structures intact. CONCLUSION: 1. Nonspecific bowel gas pattern with mild gaseous distention of the sigmoid and nondistended loop of small bowel in the left upper quadrant. Urbano Hair MD on March 04, 2017 at 14:44 Board Certified Radiologist. This report was verified electronically.
--- NOTE | 2017-03-04 15:00 | PD.VS.PN ---
Subjective POD #: 6 Procedure(s): R iliofemoral bypass, R fem-BK pop and EIA stent Subjective/Hospital Course Pt c/o abdominal pain and then dev hypotension but no LOC. Transferred to CVICU. C/O abdominal pain and nausea. KUB showed nonspecific bowel gas patter. Objective Vitals/I&O Date Time Temp Pulse Resp B/P (MAP) Pulse Ox O2 Delivery O2 Flow Rate FiO2 03/04/17 14:00 98.7 81 24 100/52 (68) 99 03/04/17 13:00 80 03/04/17 12:00 82 03/04/17 11:00 87 03/04/17 10:00 83 03/04/17 09:00 82 03/04/17 08:00 80 03/04/17 07:00 100.6 79 20 116/53 (74) 98 03/04/17 07:00 76 03/04/17 06:15 85 03/04/17 05:15 94 03/04/17 04:20 96 03/04/17 03:30 98.4 92 18 103/59 (74) 86 03/04/17 03:30 78 03/04/17 02:03 78 03/04/17 01:12 81 03/04/17 00:40 92 03/03/17 23:51 87 03/03/17 23:15 98.5 85 19 110/53 (72) 99 03/03/17 22:00 90 03/03/17 21:15 98.8 99 20 99/58 (72) 92 03/03/17 21:00 96 03/03/17 20:00 104 03/03/17 19:43 97 03/03/17 19:00 97 03/03/17 18:00 104 03/03/17 17:00 82 03/03/17 16:00 84 03/03/17 16:00 98.3 86 19 106/57 (73) 97 03/03/17 15:00 78 03/03/17 15:00 18 03/04/17 03/04/17 03/04/17 07:00 15:00 23:00 Intake Total 240 ml Output Total 575 ml Balance -335 ml Exam: Abdomen modestly tender R groin ok, mild ecchymoses R lower leg ok + PT signal R LE and L LE Laboratory Laboratory Tests Test 03/04/17 12:51 03/04/17 13:45 03/04/17 14:32 White Blood Count 8.5 Red Blood Count 3.48 Hemoglobin 10.7 Hematocrit 32.4 Mean Corpuscular Volume 92.9 Mean Corpuscular Hemoglobin 30.7 Mean Corpuscular Hemoglobin Concent 33.0 Red Cell Distribution Width 14.4 Platelet Count 393 Mean Platelet Volume 7.3 Neutrophils (%) (Auto) 73.9 Lymphocytes (%) (Auto) 15.4 Monocytes (%) (Auto) 8.1 Eosinophils (%) (Auto) 2.4 Basophils (%) (Auto) 0.2 Neutrophils # (Auto) 6.2 Lymphocytes # (Auto) 1.3 Monocytes # (Auto) 0.7 Eosinophils # (Auto) 0.2 Basophils # (Auto) 0.0 CBC Comment DIFF FINAL Differential Comment Blood Gas Puncture Site RT RADIAL Blood Gas Patient Temperature 98.6 Blood Gas HCO3 23 Blood Gas Base Excess 0.1 Blood Gas Oxygen Saturation 96 Arterial Blood pH 7.49 Arterial Blood Partial Pressure CO2 31 Arterial Blood Partial Pressure O2 138 Arterial Blood Oxygen Content 14.3 Arterial Blood Carboxyhemoglobin 0.9 Arterial Blood Methemoglobin 1.6 Blood Gas Hemoglobin 10.4 Oxygen Delivery Device NASAL CANNULA Blood Gas Liter Flow 2 Blood Gas Inspired Oxygen 28 Assessment and Plan Assessment: (1) PAD (peripheral artery disease) Plan POD#6 abdominal pain of unclear etiology 1. NPO with NGT and MIVF 2. check labs including LFT and pancreatic enzymes 3. Close UOP monitoring Discharge Planning pending resolution of abdominal pain Tereso Renee MD Mar 04, 2017 15:00
--- NOTE | 2017-03-04 15:03 | PD.CONS ---
HPI Service Critical Care Medicine Consult Requested By Primary Care Physician No Primary Care Physician History of Present Illness 66 yo male non-Turkmen speaking that presented with with PAD and R LE rest pain. Has had multiple R LE endovascular interventions, in the past. He was admitted to [facility] and is S/P right iliofemoral bypass, right femoral BK popliteal with endovascular stent placement. Today the patient complained of severe abdominal pain, with concomitant copious projectile emesis , and hypotension. The patient was a [facility] and transferred to CVICU. Upon presentation to CVICU, the patient complains of diffuse abdominal pain constant , that KUB obtained results pending BP 96/55 Critical care medicine was consulted. Past/Family/Social History Past Medical History CAD with RI and h/o coronary stents HTN Hypercholesterolemia DM CVOD prostate CA Past Surgical History LHC with stents Social History ex smoker Family History NC Home Medications Reported Medications Insulin Glargine Inj (Lantus Inj) 1,000 Unit/10 Ml Vial, 1 UNITS SQ HS for Blood Sugar Management, VIAL 0 Refills 02/26/17 [place]-3/Dha/Epa/Fish Oil (Fish Oil 1,000 mg Softgel) 1,000 Mg (120 Mg-180 Mg) Capsule 02/12/17 Triamterene-Hydrochlorothiazide (Triamterene-Hydrochlorothiazide) 37.5-25 Mg Tab , 1 TAB PO DAILY, #30 TAB 0 Refills 02/12/17 Tamsulosin (Tamsulosin) 0.4 Mg Cap, 0.4 MG PO HS for Manage Prostate Problems, # 30 CAP 0 Refills 02/12/17 Quetiapine (Quetiapine) 200 Mg Tab, 200 MG PO BID, #60 TAB 0 Refills 02/12/17 Omeprazole (Omeprazole) 20 Mg Tab, 20 MG PO DAILY, #30 TAB 0 Refills 02/12/17 Insulin Human Regular Inj (Novolin R Inj) 1,000 Unit/10 Ml Vial, 30 UNITS SQ TID for Blood Sugar Management, #10 ML 0 Refills 02/12/17 Mirtazapine (Mirtazapine) 15 Mg Tab, 15 MG PO HS for Depression Control, #30 TAB 0 Refills 02/12/17 Metformin ER (Metformin ER) 1,000 Mg Cameron, 1000 MG PO DAILY for Blood Sugar Management, #30 TAB 0 Refills With evening meal 02/12/17 Loratadine (Allergy) 10 Mg Tab 02/12/17 Lisinopril (Lisinopril) 40 Mg Tab, 40 MG PO DAILY for Blood Pressure Management , #30 TAB 0 Refills 02/12/17 Isosorbide Mononitrate ER (Isosorbide Mononitrate ER) 30 Mg Cameron, 30 MG PO DAILY for Prevent Chest Pain, #30 TAB 0 Refills 02/12/17 Hydroxyzine HCl (Hydroxyzine HCl) 50 Mg Tab, 50 MG PO HS Y for INSOMNIA, TAB 0 Refills 02/12/17 Gabapentin (Gabapentin) 600 Mg Tab, 600 MG PO BID, #60 TAB 0 Refills 02/12/17 Apixaban (Eliquis) 5 Mg Tab, 5 MG PO BID for Blood Clot Prevention, #60 TAB 0 Refills 02/12/17 Clopidogrel (Plavix) 75 Mg Tab, 75 MG PO DAILY for Blood Clot Prevention, #30 TAB 0 Refills 02/12/17 Atorvastatin (Lipitor) 40 Mg Tab, 40 MG PO HS for Cholesterol Management, #30 TAB 0 Refills 02/12/17 Aspirin (Aspirin) 81 Mg Chew, 81 MG CHEW DAILY, TAB 0 Refills 02/12/17 Mesalamine ER 24 HR (Apriso) 0.375 Gm Caper, 1.5 GM PO DAILY for Ulcerative colitis, CAP 0 Refills 02/12/17 Amlodipine (Amlodipine) 10 Mg Tab, 10 MG PO DAILY for Blood Pressure Management , #30 TAB 0 Refills 02/12/17 Fluticasone-Salmeterol Inh (Advair Diskus Inh) 250-50 Mcg/Blist Aer, 1 PUFF INH BID, #1 INHALER 0 Refills Rinse mouth after use. 02/12/17 Discontinued Reported Medications Fluticasone Nasal [place] (Flonase Nasal [place]) 50 Mcg/Act [place], 50 MCG EACH NARE BID Y for ALLERGIES, #1 BOTTLE 0 Refills 02/12/17 Coded Allergies: fentanyl (Verified Allergy, Severe, 02/26/17) severe agitation and aggresion Review of Systems ROS 12 point review of systems done with patient and negative except for pertinent positives mentioned in the above history and physical. Review mostly obtained by bedside nurse and review of medical records. Physical Exam Vital Signs Vital Signs Date Time Temp Pulse Resp B/P (MAP) Pulse Ox O2 Delivery O2 Flow Rate FiO2 12/3/17 14:00 98.7 81 24 100/52 (68) 99 03/04/17 10:00 83 03/04/17 09:00 82 03/04/17 08:00 80 03/04/17 07:00 100.6 79 20 116/53 (74) 98 03/04/17 07:00 76 03/04/17 06:15 85 03/04/17 05:15 94 03/04/17 04:20 96 03/04/17 03:30 98.4 92 18 103/59 (74) 86 03/04/17 03:30 78 03/04/17 02:03 78 03/04/17 01:12 81 03/04/17 00:40 92 03/03/17 23:51 87 03/03/17 23:15 98.5 85 19 110/53 (72) 99 03/03/17 22:00 90 03/03/17 21:15 98.8 99 20 99/58 (72) 92 03/03/17 21:00 96 03/03/17 20:00 104 03/03/17 19:43 97 03/03/17 19:00 97 03/03/17 18:00 104 03/03/17 17:00 82 03/03/17 16:00 84 03/03/17 16:00 98.3 86 19 106/57 (73) 97 03/03/17 15:00 78 03/03/17 15:00 18 Physical Exam GENERAL: This is an obese male in moderate distress secondary to diffuse abdominal pain SKIN: Warm and dry. Surgical incision site right lower extremity clean dry and intact with Dermabond no oozing or erythema noted HEAD: Atraumatic. Normocephalic. EYES: Pupils equal and round. No scleral icterus. No injection or drainage. ENT: No nasal bleeding or discharge. Mucous membranes pink and moist. NECK: Trachea midline. No JVD. CARDIOVASCULAR: Normal rate, regular rhythm. RESPIRATORY: No accessory muscle use. Clear to auscultation. Breath sounds equal bilaterally. GASTROINTESTINAL: Abdomen obese soft, non-tender, slight distention. No guarding. Hypoactive bowel sounds MUSCULOSKELETAL: Extremities without clubbing, cyanosis, or edema. No obvious deformities. Biphasic Doppler dorsalis pedis pulses NEUROLOGICAL: Awake and alert. RASS 0. No gross focal/sensory deficits. Follows commands in all 4 extremities. Laboratory Laboratory Tests Test 03/04/17 12:51 03/04/17 13:45 White Blood Count 8.5 Red Blood Count 3.48 Hemoglobin 10.7 Hematocrit 32.4 Mean Corpuscular Volume 92.9 Mean Corpuscular Hemoglobin 30.7 Mean Corpuscular Hemoglobin Concent 33.0 Red Cell Distribution Width 14.4 Platelet Count 393 Mean Platelet Volume 7.3 Neutrophils (%) (Auto) 73.9 Lymphocytes (%) (Auto) 15.4 Monocytes (%) (Auto) 8.1 Eosinophils (%) (Auto) 2.4 Basophils (%) (Auto) 0.2 Neutrophils # (Auto) 6.2 Lymphocytes # (Auto) 1.3 Monocytes # (Auto) 0.7 Eosinophils # (Auto) 0.2 Basophils # (Auto) 0.0 CBC Comment DIFF FINAL Differential Comment Blood Gas Puncture Site RT RADIAL Blood Gas Patient Temperature 98.6 Blood Gas HCO3 23 Blood Gas Base Excess 0.1 Blood Gas Oxygen Saturation 96 Arterial Blood pH 7.49 Arterial Blood Partial Pressure CO2 31 Arterial Blood Partial Pressure O2 138 Arterial Blood Oxygen Content 14.3 Arterial Blood Carboxyhemoglobin 0.9 Arterial Blood Methemoglobin 1.6 Blood Gas Hemoglobin 10.4 Oxygen Delivery Device NASAL CANNULA Blood Gas Liter Flow 2 Blood Gas Inspired Oxygen 28 Result Diagram: 03/04/17 1251 02/28/17 0530 Imaging Last Impressions Chest X-Ray 02/26/17 0000 Signed Impressions: Service Date/Time: Sunday, February 26, 2017 06:17 - CONCLUSION: Suspected mild left base atelectasis or consolidation. Phil Morrell MD Septic Shock Reassessment Heart: Regular rate and rhythm Lungs: Clear Skin: Warm Capillary Refill: Brisk Assessment and Plan Assessment and Plan Assessment This is a 66-year-old male with multiple cormorbidities to include PAD, status post right lower extremity bypass with endovascular stents placed, now With complaints of severe diffuse abdominal pain with nausea and vomiting. Admit to ICU. Assessment Nausea and vomiting Abdominal pain Possible ileus Constipation H/O ulcerative colitis PAD S/P right iliofemoral bypass, right femoral- BK popliteal with endovascular stent POD #6 Hypertension Diabetes mellitus Neuropathy right hip Hypercholesterolemia Plan Plan by systems: Neurologic: Minimize sedative type medications Ofirmev 1 g every 6 hours PRN for VAS pain scale 3-7 Continue gabapentin Respiratory: Utilize incentive spirometry as tolerated Maintain O2 saturation greater than 92% O2 1-4 LPM via N/C Bronchodilators every 4 hours PRN for wheezing Cardiovascular: Continue aspirin , Plavix and atorvastatin No chest pain Renal: Bladder scan upon admission for possible urinary retention Insert Manriquez -- Strict I/Os FEN/GI: Maintain NPO status for now Insert NGT to LIWS Obtain CMP, amylase, lipase follow up results Follow-up KUB Obtain CT abdomen pelvis Consult GI Initiate bowel regimen -patient reports no bowel movement since hospital admission Zofran for nausea Heme/ID: Monitor CBC Obtained lactic acid level Endocrine: Glucose monitoring per ICU protocol, patient currently on Levemir 10 units twice a day -- SSI Prophylaxis: GI Prophylaxis Protonix DVT Prophylaxis -- SCDs Lovenox 40mg /day Lines: Peripheral IVs providing adequate access at this time. Central line if indicated. Dispo: my billing statement This patient remains critically ill with one or more organ systems which are or may become a threat to life. I have spent in excess of 35 minutes discontinuously in the care and management of this patient. This time is exclusive of procedures, and includes, but is not limited to, evaluation of the patient, review of the medical record, discussions with family, consultants, nursing staff, or respiratory therapy, and documentation in the medical record. Code Status Full Discussed Condition With Dr. Renee, CELERY STRIPPER's at bedside (Yolanda Caro) Zahra Fuchs MD Mar 04, 2017 15:03
[2017-03-04 15:08] LABS: ALT (GPT) 26 U/L (12-78); ANION GAP 8 MEQ/L (5-15); AST (GOT) 17 U/L (15-37); BICARBONATE 24.4 MEQ/L (21.0-32.0); BLOOD UREA NITROGEN 36 MG/DL (7-18); CHLORIDE 106 MEQ/L (98-107); GLOMERULAR FILTRATION RATE 74 ML/MIN (>89); MAGNESIUM 2.2 MG/DL (1.5-2.5); POTASSIUM 3.6 MEQ/L (3.5-5.1); SODIUM (NA) 138 MEQ/L (136-145)
[2017-03-04 15:11] LABS: ALKALINE PHOSPHATASE 67 U/L (45-117); TOTAL BILIRUBIN ADULT 0.3 MG/DL (0.2-1.0)
[2017-03-04 15:15] LABS: AUTOMATED NEUTROPHIL # 5.1 TH/MM3 (1.8-7.7); BASOPHIL % 0.3 % (0.0-2.0); EOSINOPHIL # 0.2 TH/MM3 (0-0.4); EOSINOPHIL % 3.1 % (0.0-4.0); HEMO FLAGS DIFF FINAL; LYMPH % 15.5 % (9.0-44.0); LYMPHOCYTE # 1.1 TH/MM3 (1.0-4.8); MEAN CELL VOLUME 91.6 FL (80.0-100.0); MEAN CORPUSCULAR HEMOGLOBIN 31.9 PG (27.0-34.0); MEAN CORPUSCULAR HGB CONC 34.9 % (32.0-36.0); MONO % 8.4 % (0.0-8.0); NEUT % 72.7 % (16.0-70.0); PLATELET COUNT 337 TH/MM3 (150-450); RED BLOOD COUNT 2.95 MIL/MM3 (4.50-5.90); RED CELL DISTRIBUTION WIDTH 14.2 % (11.6-17.2)
[2017-03-04] MEDS ORDERED: ONDANSETRON HCL 4 MG/2 ML VIAL IV PUSH PRN (15:15)
[2017-03-04] MEDS ORDERED: DIATRIZOATE MEGLUM/DIATRIZOATE SOD 9 ML CUP PO ONE (15:15)
[2017-03-04] MEDS ORDERED: RESP: ALBUTEROL 2.5 MG/IPRATROPIUM 0.5 MG NEB (PRN) NEB (15:15)
[2017-03-04 15:16] LABS: PROTHROMBIN TIME - PATIENT 10.5 SEC (9.8-11.6)
[2017-03-04] MEDS: ACETAMINOPHEN 1000 MG/100 ML 100 ML IV SCH ×2 (15:29→21:29)
[2017-03-04] MEDS: SODIUM CHLOR 0.9% 1000 ML INJ 1,000 ML IV SCH ×2 (15:29→23:00)
[2017-03-04] MEDS: PANTOPRAZOLE SODIUM 40 MG VIAL IV PUSH SCH (16:00)
--- NOTE | 2017-03-04 17:03 | MB ---
cc: MICHAEL HERRON M.D. DATE OF CONSULTATION 03/04/[address] Fuchs REASON FOR CONSULTATION Severe abdominal pain. HISTORY OF THE PRESENT ILLNESS Mr. Jacobsen is a 66-year-old gentleman, , speaking very poor Kiswahili, admitted to the hospital a week ago for peripheral arterial disease and pain in the right lower leg addressed. The patient had a history of multiple endovascular interventions for the right lower leg. He was evaluated by vascular surgery and he had a right iliofemoral bypass, right femoral ___ popliteal with endovascular stent placement. The patient did not have any bowel movement postoperative, passed minimal flatus. He complained of some pain in the left lower quadrant. An x-ray was done which was essentially negative. He was given some Tylenol also for pain and low grade fever. Earlier today he got more distended. He complained of severe abdominal pain in the left lower quadrant. He started vomiting and he was hypotensive. An NG tube was placed and he was transferred to [facility] for closer observation. An abdominal x-ray was done which showed nonspecific bowel gas pattern with mild gaseous distension of the sigmoid, nondistended loops of the small bowel in the left upper quadrant. A CT scan of the abdomen and pelvis was ordered and this is in progress at this time. He still complains of some abdominal pain, moans when he is touched. States he did have a colonoscopy many years ago. PAST MEDICAL HISTORY 1. Coronary artery disease. 2. High blood pressure. 3. High cholesterol. 4. Diabetes. 5. Prostate cancer. 6. History of ulcerative colitis. 7. 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 PAST SURGICAL HISTORY Multiple endovascular surgeries for peripheral arterial disease. SOCIAL HISTORY Smoker. FAMILY HISTORY Noncontributory. MEDICATIONS 1. Insulin. 2. Fish oil. 3. Triamterene. 4. Hydrochlorothiazide. 5. Tamsulosin. 6. Quetiapine. 7. Omeprazole. 8. Mirtazapine. 9. Metformin. 10. Loratadine. 11. Lisinopril. 12. Isosorbide. 13. Hydroxyzine. 14. Gabapentin. 15. Eliquis. 16. Plavix. 17. Aspirin. 18. Lipitor. 19. Mesalamine. 20. Amlodipine. 21. Fluticasone. REVIEW OF SYSTEMS CONSTITUTIONAL: Cannot be done properly but there is no history of weight loss or weight gain. ENT: No alteration in baseline hearing or visual acuity. PULMONARY: No history of shortness of breath or pneumonia. GASTROINTESTINAL: As above. GENITOURINARY: There is no history of dysuria, hematuria. HM HEMATOLOGIC: No history of anemia or bleeding disorder. SKIN: No alteration in baseline skin lesion. NEUROLOGIC: No history of recent TIA or CVA kind of symptoms. PHYSICAL EXAMINATION GENERAL: On clinical exam the patient is sitting in bed in no acute distress. NG tube in place. VITAL SIGNS: Temperature 98, blood pressure 110/55 saturation 98. HEENT: Pupils equal, round, reactive to light and accommodation. Nasogastric tube in place. NECK: No JVD. No lymphadenopathy. CHEST: Clear to auscultation and percussion. CARDIOVASCULAR: S1-S2. No murmur. ABDOMEN: Obese. Distended but soft. Tender in the left lower quadrant and right lower quadrant. CENTRAL NERVOUS SYSTEM: He is awake, alert, oriented x3. There is some difficulty communicating due to language barrier. Awaiting for vrt mechanic. IMAGING Abdominal x-ray as described. No old records available for comparison. CT abdomen and pelvis ordered. IMPRESSION Mr. Jacobsen is a pleasant 66-year-old gentleman who developed severe abdominal pain, nausea and vomiting today postoperative day three on pain medication, did not have any bowel movement possible ileus, less likely acute abdomen, constipation. Recent surgery, pain medication use. No bowel movement since surgery possible postoperative ____, history of ulcerative colitis on omeprazole. No indication of active bleed at this time. Doubt this is the cause of his symptoms at this time. RECOMMENDATIONS NG tube. Await CT abdomen and pelvis. If no obstruction the patient may benefit from suppositories, enema and Relistor. May consider adding on antibiotics, Flagyl and Cipro, again based on CT results. Supportive care. I would like to thank Dr. Fuchs for referring him to our office for consultation. MD ALFREDO Weinstein/TUCKER /4:18 PM /4:30 PM
[2017-03-04] MEDS ORDERED: IOHEXOL 350 MG/ML 10 ML VIAL (for RAD DIAG) IVCONTRAST ONE (20:21)
--- NOTE | 2017-03-04 20:44 | RADRPT ---
EXAM DATE/TIME: 03/04/2017 20:21 [place] COMPARISON: No previous studies available for comparison. INDICATIONS : Abdominal pain. IV CONTRAST: 72 cc Omnipaque 350 (iohexol) IV ORAL CONTRAST: Prescribed oral contrast ingested. RADIATION DOSE: 19.89 CTDIvol (mGy) MEDICAL HISTORY : Carcinoma, prostate. Hypertension. Gastroesophageal reflux disease.Diabetes SURGICAL HISTORY : None. ENCOUNTER: Initial ACUITY: 1 day PAIN SCALE: 7/10 LOCATION: abdomen TECHNIQUE: Volumetric scanning of the abdomen and pelvis was performed. Using automated exposure control and ad justment of the mA and/or kV according to patient size, radiation dose was kept as low as reasonably achievable to obtain optimal diagnostic quality images. DICOM format image data is available electro nically for review and comparison. FINDINGS: LOWER LUNGS: The visualized lower lungs are clear. LIVER: Homogeneous density without lesion. There is no dilation of the biliary tree. No calcified gallston es. SPLEEN: Normal size without lesion. PANCREAS: Within normal limits. KIDNEYS: Normal in size and shape. There is no mass, stone or hydronephrosis. ADRENAL GLANDS: There are left adrenal gland nodules that measure 18 x 22 mm of the medial limb and 11 x 25 mm of the lateral limb. Right adrenal gland is normal. VASCULAR: Atherosclerosis seen of the abdominal aorta and branch vessels. No aneurysm. BOWEL/MESENTERY: The stomach, small bowel, and colon demonstrate no acute abnormality. There is no free intraperitone al air or fluid. Normal appendix. Nasogastric tube tip is in the distal stomach. ABDOMINAL WALL: Within normal limits. RETROPERITONEUM: There is no lymphadenopathy. BLADDER: No wall thickening or mass. REPRODUCTIVE: Within normal limits. INGUINAL: Apparent right inguinal hernia repair. I'm unsure when this was done but there is air and induration in the overlying subcutaneous fat. Some subcutaneous edema tracks posteriorly into the right lateral upper thigh. No fluid collections are demonstrated. MUSCULOSKELETAL: Within normal limits for patient age. CONCLUSION: 1. Postoperative change versus cellulitis right inguinal region. No fluid collections are demonstrate d. 2. No acute abnormality seen within the abdomen or pelvis. 3. 22 mm left adrenal gland nodules, probably adenomas. 4. Diffuse atherosclerosis. Phil Mendez MD on March 04, 2017 at 20:37 Board Certified Radiologist. This report was verified electronically.
[2017-03-04] MEDS: TAMSULOSIN HCL 0.4 MG CAP PO SCH (21:29)
[2017-03-04] MEDS: MIRTAZAPINE 15 MG TAB PO SCH (21:29)
[2017-03-04] MEDS: ATORVASTATIN 40 MG TAB PO SCH (21:30)
[2017-03-05] VITALS (9 sets, daily range): BP systolic 92–143; BP diastolic 45–77; PULSE 81–101; RESP 16–18; TEMP 98–99; O2SAT 95–98
[2017-03-05] MEDS: ACETAMINOPHEN 1000 MG/100 ML 100 ML IV SCH ×4 (02:33→21:08)
[2017-03-05] MEDS: PANTOPRAZOLE SODIUM 40 MG VIAL IV PUSH SCH ×2 (02:34→15:33)
[2017-03-05] MEDS: SODIUM CHLOR 0.9% 1000 ML INJ 1,000 ML IV SCH (02:34)
[2017-03-05 04:42] LABS: HEMATOCRIT 28.8 % (39.0-51.0); MEAN CELL VOLUME 93.2 FL (80.0-100.0); MEAN CORPUSCULAR HEMOGLOBIN 32.1 PG (27.0-34.0); MEAN CORPUSCULAR HGB CONC 34.4 % (32.0-36.0); PLATELET COUNT 377 TH/MM3 (150-450); RED BLOOD COUNT 3.09 MIL/MM3 (4.50-5.90); RED CELL DISTRIBUTION WIDTH 14.6 % (11.6-17.2); REVIEW FLAG FINAL; WHITE BLOOD COUNT 9.3 TH/MM3 (4.0-11.0)
[2017-03-05 05:02] LABS: BICARBONATE 26.1 MEQ/L (21.0-32.0); POTASSIUM 4.1 MEQ/L (3.5-5.1)
[2017-03-05] MEDS: HIGH DOSE INSULIN NOVOLOG SUPPLEMENTAL SCALE SQ SCH ×4 (08:00→21:00)
--- NOTE | 2017-03-05 09:53 | PD.VS.PN ---
Subjective POD #: 7 Procedure(s): R iliofemoral bypass, R fem-BK pop and EIA stent Subjective/Hospital Course Pt denied abdominal pain/nausea + BM last night Incision to R groin/RLE intact w/o D/S/R CT/KUB reviewed Objective Vitals/I&O Date Time Temp Pulse Resp B/P (MAP) Pulse Ox O2 Delivery O2 Flow Rate FiO2 03/05/17 08:14 97 Nasal Cannula 2.00 03/05/17 03:00 82 03/05/17 03:00 98.3 81 16 96/45 (62) 97 03/04/17 23:00 87 03/04/17 23:00 98.3 79 16 120/64 (82) 97 03/04/17 22:00 83 03/04/17 21:00 85 03/04/17 20:35 99 Nasal Cannula 2.50 03/04/17 20:00 81 03/04/17 19:00 98.6 85 16 120/64 (82) 97 03/04/17 19:00 87 03/04/17 18:00 80 03/04/17 17:00 79 03/04/17 16:00 78 03/04/17 15:00 83 03/04/17 15:00 98.0 83 24 110/55 (73) 98 03/04/17 14:00 98.7 81 24 100/52 (68) 99 03/04/17 13:00 80 03/04/17 12:00 82 03/04/17 11:00 87 03/04/17 10:00 83 03/05/17 03/05/17 03/05/17 07:00 15:00 23:00 Intake Total 30 ml Output Total 2100 ml Balance -2070 ml Exam: GENERAL: A&OX3,NAD,GCS15 SKIN: Warm and dry/ Incision to r groin/RLE intact well approximated w/o R/D/S/ O CARDIOVASCULAR: Regular rate and rhythm without murmurs, gallops, or rubs. RESPIRATORY: Breath sounds equal bilaterally. No accessory muscle use. GASTROINTESTINAL: Abdomen soft, non-tender, nondistended. + BS MUSCULOSKELETAL: No cyanosis, or edema. Biphasic R DP/PT Biphasic L PT LE warm with motor intact Laboratory Laboratory Tests Test 03/04/17 12:51 03/04/17 13:45 03/04/17 14:32 03/05/17 03:43 White Blood Count 8.5 7.0 9.3 Red Blood Count 3.48 2.95 3.09 Hemoglobin 10.7 9.4 9.9 Hematocrit 32.4 27.0 28.8 Mean Corpuscular Volume 92.9 91.6 93.2 Mean Corpuscular Hemoglobin 30.7 31.9 32.1 Mean Corpuscular Hemoglobin Concent 33.0 34.9 34.4 Red Cell Distribution Width 14.4 14.2 14.6 Platelet Count 393 337 377 Mean Platelet Volume 7.3 7.3 7.1 Neutrophils (%) (Auto) 73.9 72.7 Lymphocytes (%) (Auto) 15.4 15.5 Monocytes (%) (Auto) 8.1 8.4 Eosinophils (%) (Auto) 2.4 3.1 Basophils (%) (Auto) 0.2 0.3 Neutrophils # (Auto) 6.2 5.1 Lymphocytes # (Auto) 1.3 1.1 Monocytes # (Auto) 0.7 0.6 Eosinophils # (Auto) 0.2 0.2 Basophils # (Auto) 0.0 0.0 CBC Comment DIFF FINAL DIFF FINAL Differential Comment Blood Gas Puncture Site RT RADIAL Blood Gas Patient Temperature 98.6 Blood Gas HCO3 23 Blood Gas Base Excess 0.1 Blood Gas Oxygen Saturation 96 Arterial Blood pH 7.49 Arterial Blood Partial Pressure CO2 31 Arterial Blood Partial Pressure O2 138 Arterial Blood Oxygen Content 14.3 Arterial Blood Carboxyhemoglobin 0.9 Arterial Blood Methemoglobin 1.6 Blood Gas Hemoglobin 10.4 Oxygen Delivery Device NASAL CANNULA Blood Gas Liter Flow 2 Blood Gas Inspired Oxygen 28 Prothrombin Time 10.5 Prothromb Time International Ratio 1.0 Blood Urea Nitrogen 36 25 Creatinine 1.01 1.02 Random Glucose 130 106 Total Protein 6.5 Albumin 2.4 Calcium Level 8.1 8.9 Phosphorus Level 3.1 Magnesium Level 2.2 Alkaline Phosphatase 67 Aspartate Amino Transf (AST/SGOT) 17 Alanine Aminotransferase (ALT/SGPT) 26 Total Bilirubin 0.3 Direct Bilirubin 0.1 Sodium Level 138 137 Potassium Level 3.6 4.1 Chloride Level 106 103 Carbon Dioxide Level 24.4 26.1 Anion Gap 8 8 Estimat Glomerular Filtration Rate 74 74 Lactic Acid Level 1.2 Lipase 213 Assessment and Plan Assessment: (1) PAD (peripheral artery disease) Plan POD#7 Pt w/o abdominal pain/nausea Recent imaging studies reviewed- no acute findings/constipation Plan D/C MIVF D/C NG tube D/C Manriquez Cath Clear liquid diet may advance to diabetic diet this afternoon if tolerated Continue PT/OOB/Ambulation Linda BURNETT [facility] [phone] Discharge Planning potentially tomorrow am to rehab Linda Melchor Mar 05, 2017 09:53
[2017-03-05] MEDS: ASPIRIN 325 MG TAB PO SCH (10:13)
[2017-03-05] MEDS: GABAPENTIN 300 MG CAP PO SCH ×2 (10:13→21:06)
[2017-03-05] MEDS: DOCUSATE SODIUM 50 MG/SENNA 8.6 MG TAB PO SCH ×2 (10:14→21:06)
[2017-03-05] MEDS: LISINOPRIL 20 MG TAB PO SCH (10:14)
[2017-03-05] MEDS: ISOSORBIDE MONONITRATE 30 MG TAB PO SCH (10:14)
[2017-03-05] MEDS: METOPROLOL TARTRATE 25 MG TAB PO SCH ×2 (10:14→21:06)
[2017-03-05] MEDS: CLOPIDOGREL 75 MG TAB PO SCH (10:14)
[2017-03-05] MEDS: TRIAMTERENE/HCTZ 37.5 MG/25 MG TAB PO SCH (10:15)
[2017-03-05] MEDS: QUEtiapine FUMARATE 200 MG TAB PO SCH ×2 (10:15→21:06)
[2017-03-05] MEDS: ENOXAPARIN SODIUM 40 MG/0.4 ML SYRINGE SQ SCH (10:15)
[2017-03-05] MEDS: BUDESONIDE-FORMOTEROL 160/4.5 MCG INHALER INH SCH ×2 (10:16→21:08)
[2017-03-05] MEDS: LACTULOSE SYRUP 20 GM/30 ML CUP PO SCH ×2 (10:18→21:00)
[2017-03-05] MEDS: SENNOSIDES 8.6 MG TAB PO SCH ×2 (10:18→21:06)
--- NOTE | 2017-03-05 10:56 | HHI.CCPN ---
Subjective Remarks/Hospital Course 66 yo male non-Luxembourgish speaking that presented with with PAD and R LE rest pain. Has had multiple R LE endovascular interventions, in the past. He was admitted to [facility] and is S/P right iliofemoral bypass, right femoral BK popliteal with endovascular stent placement. Today the patient complained of severe abdominal pain, with concomitant copious projectile emesis , and hypotension. The patient was a [facility] and transferred to CVICU. Upon presentation to CVICU, the patient complains of diffuse abdominal pain constant , that KUB obtained results pending BP 96/55 Critical care medicine was consulted. Subjective: 03/05: Afebrile. Nausea and vomiting resolved. Patient received bowel regimen post CT of the abdomen with enema and lactulose, now having bowel movements. Patient's pain still diffuse but diminished. Mesalamine to be reinitiated this a.m. for ulcerative colitis, patient normally takes extended release moderately large dose of 1.5 g daily. Objective Vital Signs Date Time Temp Pulse Resp B/P (MAP) Pulse Ox O2 Delivery O2 Flow Rate FiO2 03/05/17 08:14 97 Nasal Cannula 2.00 03/05/17 03:00 82 03/05/17 03:00 98.3 16 96/45 (62) Intake and Output 03/05/17 03/05/17 03/06/17 08:00 16:00 00:00 Intake Total 30 ml Output Total 2100 ml Balance -2070 ml Result Diagram: 03/05/17 0343 03/05/17 0343 Other Results Laboratory Tests Test 03/04/17 13:45 Blood Gas Puncture Site RT RADIAL Blood Gas Patient Temperature 98.6 Blood Gas HCO3 23 mmol/L (22-26) Blood Gas Base Excess 0.1 mmol/L (-2-2) Blood Gas Oxygen Saturation 96 % (90-100) Arterial Blood pH 7.49 (7.380-7.420) Arterial Blood Partial Pressure CO2 31 mmHg (38-42) Arterial Blood Partial Pressure O2 138 mmHg (61-120) Arterial Blood Oxygen Content 14.3 Vol % (12.0-20.0) Arterial Blood Carboxyhemoglobin 0.9 % (0-4) Arterial Blood Methemoglobin 1.6 % (0-2) Blood Gas Hemoglobin 10.4 G/DL (12.0-16.0) Oxygen Delivery Device NASAL CANNULA Blood Gas Liter Flow 2 L/M Blood Gas Inspired Oxygen 28 % Imaging Last Impressions Chest X-Ray 02/26/17 0000 Signed Impressions: Service Date/Time: Sunday, February 26, 2017 06:17 - CONCLUSION: Suspected mild left base atelectasis or consolidation. Phil Morrell MD Objective Remarks GENERAL: This is an obese male in no apparent distress this a.m., states minimal pain SKIN: Warm and dry. Surgical incision site right lower extremity clean dry and intact with Dermabond no oozing or erythema noted HEAD: Atraumatic. Normocephalic. EYES: Pupils equal and round. No scleral icterus. No injection or drainage. ENT: No nasal bleeding or discharge. Mucous membranes pink and moist. NECK: Trachea midline. No JVD. CARDIOVASCULAR: Normal rate, regular rhythm. RESPIRATORY: No accessory muscle use. Clear to auscultation. Breath sounds equal bilaterally. GASTROINTESTINAL: Abdomen obese soft, non-tender, slight distention. No guarding. Hypoactive bowel sounds MUSCULOSKELETAL: Extremities without clubbing, cyanosis, or edema. No obvious deformities. Biphasic Doppler dorsalis pedis pulses NEUROLOGICAL: Awake and alert. RASS 0. No gross focal/sensory deficits. Follows commands in all 4 extremities. Urinary Catheter: Yes Assessment to: Remove A/P Assessment and Plan Assessment Nausea and vomiting-resolved Abdominal pain Possible ileus Constipation H/O ulcerative colitis PAD S/P right iliofemoral bypass, right femoral- BK popliteal with endovascular stent POD #7 Hypertension Diabetes mellitus Neuropathy right hip Hypercholesterolemia Plan Plan by systems: Neurologic: Minimize sedative type medications Ofirmev 1 g every 6 hours PRN for VAS pain scale 3-7 Continue gabapentin Respiratory: Utilize incentive spirometry as tolerated Maintain O2 saturation greater than 92% O2 1-4 LPM via N/C Bronchodilators every 4 hours PRN for wheezing Cardiovascular: Continue aspirin , Plavix and atorvastatin No chest pain Renal: Bladder scan upon admission for possible urinary retention Insert Manriquez -- Strict I/Os FEN/GI: D/C NGT Clear liquid diet 03/05 CT abdomen pelvis- no acute process GI following- Dr. Fields Continue bowel regimen -lactulose BID, senna BID, PRN mineral enema Start Mesalamine SR 500 mg TID Zofran for nausea Heme/ID: Monitor CBC Endocrine: Glucose monitoring per ICU protocol, patient currently on Levemir 10 units twice a day to be resumed -- SSI Prophylaxis: GI Prophylaxis Protonix DVT Prophylaxis -- SCDs Lovenox 40mg /day Lines: Peripheral IVs providing adequate access at this time. Central line if indicated. Dispo: Level 3 Discussed with SUPPLY CHAIN LOGISTICS MANAGER at bedside. Critical care medicine will sign off. Thank you for the consult. Physician Zahra Neely MD Mar 05, 2017 10:56
[2017-03-05] MEDS: MESALAMINE 250 MG CAP PO SCH ×2 (13:04→17:00)
--- NOTE | 2017-03-05 14:25 | HHI.GIFU ---
Subjective Remarks Pt resting in bed, in no apparent distress at this time. NGT has been discontinued. Pt is tolerating full liquid diet. Per nurse pt has had a BM overnight. She reports pt has not had any vomiting since removing the NGT. Pt still having some abdominal pain and TTP, but improving. (Kianna Cummings) Objective Vitals I&O Vital Signs Date Time Temp Pulse Resp B/P (MAP) Pulse Ox O2 Delivery O2 Flow Rate FiO2 03/05/17 11:00 101 03/05/17 11:00 98.8 101 18 101/47 (65) 98 03/05/17 10:46 18 03/05/17 08:14 97 Nasal Cannula 2.00 03/05/17 07:00 83 03/05/17 07:00 99.0 97 18 143/77 (99) 95 03/05/17 03:00 82 03/05/17 03:00 98.3 81 16 96/45 (62) 97 03/04/17 23:00 87 03/04/17 23:00 98.3 79 16 120/64 (82) 97 03/04/17 22:00 83 03/04/17 21:00 85 03/04/17 20:35 99 Nasal Cannula 2.50 03/04/17 20:00 81 03/04/17 19:00 98.6 85 16 120/64 (82) 97 03/04/17 19:00 87 03/04/17 18:00 80 03/04/17 17:00 79 03/04/17 16:00 78 03/04/17 15:00 83 03/04/17 15:00 98.0 83 24 110/55 (73) 98 I/O 03/04/17 03/04/17 03/04/17 03/05/17 03/05/17 03/05/17 07:00 15:00 23:00 07:00 15:00 23:00 Intake Total 240 ml 712 ml 30 ml Output Total 575 ml 385 ml 2100 ml Balance -335 ml 327 ml -2070 ml Intake Oral 240 ml 30 ml IV Total 712 ml Output Urine Total 575 ml 335 ml 2100 ml Gastric Drainage Total 50 ml # Bowel Movements 0 0 Laboratory Laboratory Tests Test 03/04/17 14:32 03/05/17 03:43 White Blood Count 7.0 9.3 Red Blood Count 2.95 3.09 Hemoglobin 9.4 9.9 Hematocrit 27.0 28.8 Mean Corpuscular Volume 91.6 93.2 Mean Corpuscular Hemoglobin 31.9 32.1 Mean Corpuscular Hemoglobin Concent 34.9 34.4 Red Cell Distribution Width 14.2 14.6 Platelet Count 337 377 Mean Platelet Volume 7.3 7.1 Neutrophils (%) (Auto) 72.7 Lymphocytes (%) (Auto) 15.5 Monocytes (%) (Auto) 8.4 Eosinophils (%) (Auto) 3.1 Basophils (%) (Auto) 0.3 Neutrophils # (Auto) 5.1 Lymphocytes # (Auto) 1.1 Monocytes # (Auto) 0.6 Eosinophils # (Auto) 0.2 Basophils # (Auto) 0.0 CBC Comment DIFF FINAL Differential Comment Prothrombin Time 10.5 Prothromb Time International Ratio 1.0 Blood Urea Nitrogen 36 25 Creatinine 1.01 1.02 Random Glucose 130 106 Total Protein 6.5 Albumin 2.4 Calcium Level 8.1 8.9 Phosphorus Level 3.1 Magnesium Level 2.2 Alkaline Phosphatase 67 Aspartate Amino Transf (AST/SGOT) 17 Alanine Aminotransferase (ALT/SGPT) 26 Total Bilirubin 0.3 Direct Bilirubin 0.1 Sodium Level 138 137 Potassium Level 3.6 4.1 Chloride Level 106 103 Carbon Dioxide Level 24.4 26.1 Anion Gap 8 8 Estimat Glomerular Filtration Rate 74 74 Lactic Acid Level 1.2 Lipase 213 Imaging Last Impressions Abdomen/Pelvis CT 03/04/17 0000 Signed Impressions: Service Date/Time: Saturday, March 04, 2017 20:21 - CONCLUSION: 1. Postoperative change versus cellulitis right inguinal region. No fluid collections are demonstrated. 2. No acute abnormality seen within the abdomen or pelvis. 3. 22 mm left adrenal gland nodules, probably adenomas. 4. Diffuse atherosclerosis. Phil Mendez MD Abdomen X-Ray 03/04/17 0000 Signed Impressions: Service Date/Time: Saturday, March 04, 2017 13:38 - CONCLUSION: 1. Nonspecific bowel gas pattern with mild gaseous distention of the sigmoid and nondistended loop of small bowel in the left upper quadrant. Urbano Hair MD Chest X-Ray 02/26/17 0000 Signed Impressions: Service Date/Time: Sunday, February 26, 2017 06:17 - CONCLUSION: Suspected mild left base atelectasis or consolidation. Phil Morrell MD Physical Exam HEENT: Normocephalic; atraumatic; no jaundice. CHEST: Even/unlabored CARDIAC: RRR ABDOMEN: Firm, distended, diffuse abdominal tenderness; bowel sounds active x 4. EXTREMITIES: No clubbing, cyanosis, or edema. SKIN: Normal; no rash; no jaundice. ORACLE DATABASE ARCHITECT: No focal deficits; alert and oriented times three. (Kianna Cummings) Assessment and Plan Plan Assessment - Abdominal pain/constipation- Did have a BM last night. Continued abdominal distension and diffusely TTP. Current bowel regimen includes Lactulose and Sennokot. KUB (03/04) --> Nonspecific bowel gas pattern with mild gaseous distension of the sigmoid and nondistended loop of small bowel in the left upper quadrant. Of note, pt is on Oxycodone for pain control. Will add SSE x 2 and Relistor 12 mg subq. - Nausea and vomiting- Recent surgery, pain medication use. NGT discontinued. Pt has had no vomiting since then. - History of ulcerative colitis- No indication of active bleed at this time. Pt was restarted on Mesalamine. Plan - SSE x 2 - Relistor 12 mg subq once - KUB in AM - Continue clear liquid diet - Supportive care - Further recommendations to follow based on results of above Pt seen and examined by myself and Dr. Walsh and this note is written on his behalf (Kianna Cummings) Physician Comments Seen and examined with HORTENCIA, doing better. Good response to laxatives. Monitor kub (Ronda Andrade MD) Kianna Cummings Mar 05, 2017 14:25 Ronda Andrade MD Mar 05, 2017 16:48
[2017-03-05] MEDS ORDERED: METHYLNALTREXONE BROMIDE 12 MG/0.6 ML VIAL SQ ONE (14:30)
[2017-03-05] MEDS: ATORVASTATIN 40 MG TAB PO SCH (21:05)
[2017-03-05] MEDS: TAMSULOSIN HCL 0.4 MG CAP PO SCH (21:06)
[2017-03-05] MEDS: MIRTAZAPINE 15 MG TAB PO SCH (21:06)
[2017-03-05] MEDS: INSULIN DETEMIR 100 UNITS/ML VIAL SQ SCH (21:16)
[2017-03-06] VITALS (9 sets, daily range): BP systolic 92–123; BP diastolic 52–71; PULSE 69–90; RESP 16–18; TEMP 98.5–99.2; O2SAT 93–97
[2017-03-06] MEDS: HYDROmorphone HCL 2 MG TAB PO PRN (01:21)
[2017-03-06] MEDS: PANTOPRAZOLE SODIUM 40 MG VIAL IV PUSH SCH ×2 (04:09→15:00)
[2017-03-06] MEDS: ACETAMINOPHEN 1000 MG/100 ML 100 ML IV SCH ×2 (04:09→08:33)
--- NOTE | 2017-03-06 05:52 | RADRPT ---
EXAM DATE/TIME: 03/06/2017 04:53 [place] COMPARISON: ABDOMEN KUB ONLY, March 04, 2017, 13:38. INDICATIONS : Ileus. MEDICAL HISTORY : Cardiovascular disease. SURGICAL HISTORY : None. ENCOUNTER: Subsequent ACUITY: 1 week PAIN SCORE: 0/10 LOCATION: Bilateral chest FINDINGS: 2 AP supine portable views of the abdomen and pelvis were obtained again demonstrate gas and stool no jered segments within the colon. There are several loops of nondilated air-containing small bowel with no evidence of free air or mass effect. Surgical clips are again noted in the pelvis. Bony structures are intact. CONCLUSION: Stable mildly nonspecific bowel gas pattern George Alvarado MD on March 06, 2017 at 5:49 Board Certified Radiologist. This report was verified electronically.
[2017-03-06] MEDS: HIGH DOSE INSULIN NOVOLOG SUPPLEMENTAL SCALE SQ SCH ×4 (07:46→21:00)
[2017-03-06] MEDS: TRIAMTERENE/HCTZ 37.5 MG/25 MG TAB PO SCH (08:34)
[2017-03-06] MEDS: GABAPENTIN 300 MG CAP PO SCH ×2 (08:34→21:29)
[2017-03-06] MEDS: LISINOPRIL 20 MG TAB PO SCH (08:34)
[2017-03-06] MEDS: INSULIN DETEMIR 100 UNITS/ML VIAL SQ SCH ×2 (08:34→21:41)
[2017-03-06] MEDS: ASPIRIN 325 MG TAB PO SCH (08:34)
[2017-03-06] MEDS: MESALAMINE 250 MG CAP PO SCH ×3 (08:35→17:58)
[2017-03-06] MEDS: METOPROLOL TARTRATE 25 MG TAB PO SCH ×2 (08:35→21:28)
[2017-03-06] MEDS: ENOXAPARIN SODIUM 40 MG/0.4 ML SYRINGE SQ SCH (08:35)
[2017-03-06] MEDS: CLOPIDOGREL 75 MG TAB PO SCH (08:35)
[2017-03-06] MEDS: SENNOSIDES 8.6 MG TAB PO SCH ×2 (08:36→21:28)
[2017-03-06] MEDS: QUEtiapine FUMARATE 200 MG TAB PO SCH ×2 (08:36→21:29)
[2017-03-06] MEDS: DOCUSATE SODIUM 50 MG/SENNA 8.6 MG TAB PO SCH ×2 (08:36→21:29)
[2017-03-06] MEDS: ISOSORBIDE MONONITRATE 30 MG TAB PO SCH (08:36)
[2017-03-06] MEDS: LACTULOSE SYRUP 20 GM/30 ML CUP PO SCH ×2 (08:36→21:00)
[2017-03-06] MEDS: BUDESONIDE-FORMOTEROL 160/4.5 MCG INHALER INH SCH ×2 (08:37→21:00)
--- NOTE | 2017-03-06 08:58 | PD.VS.PN ---
Subjective POD #: 8 Procedure(s): R iliofemoral bypass, R fem-BK pop and EIA stent Subjective/Hospital Course Pt denied abdominal pain/nausea + BM last night Incision to R groin/RLE intact w/o D/S/R Objective Vitals/I&O Date Time Temp Pulse Resp B/P (MAP) Pulse Ox O2 Delivery O2 Flow Rate FiO2 03/06/17 07:48 98.5 69 18 92/54 (67) 95 03/06/17 07:00 69 03/06/17 05:18 18 03/06/17 03:00 98.7 74 18 123/71 (88) 95 03/06/17 03:00 71 03/06/17 02:26 18 03/05/17 23:00 82 03/05/17 23:00 98.0 93 18 113/63 (80) 95 03/05/17 20:31 97 21 03/05/17 19:00 98.5 91 18 116/45 (68) 95 03/05/17 19:00 82 03/05/17 16:00 83 03/05/17 15:00 98.9 83 18 92/53 (66) 95 03/05/17 11:00 101 03/05/17 11:00 98.8 101 18 101/47 (65) 98 03/06/17 03/06/17 03/06/17 07:00 15:00 23:00 Intake Total 580 ml Output Total 1350 ml Balance -770 ml Exam: GENERAL: A&OX3,NAD,GCS15 SKIN: Warm and dry/ Incision to r groin/RLE intact well approximated w/o R/D/S/ O CARDIOVASCULAR: Regular rate and rhythm without murmurs, gallops, or rubs. RESPIRATORY: Breath sounds equal bilaterally. No accessory muscle use. GASTROINTESTINAL: Abdomen soft, non-tender, nondistended. + BS MUSCULOSKELETAL: No cyanosis, or edema. Biphasic R DP/PT Biphasic L PT LE warm with motor intact Assessment and Plan Assessment: (1) PAD (peripheral artery disease) Plan POD#8 Pt w/o abdominal pain/nausea Recent imaging studies reviewed- no acute findings/constipation Plan Transfer to [facility] Start Diabetic diet (breakfast) Continue PT/OOB/Ambulation D/C planning to home (tomorrow am) Linda BURNETT [facility] [address] Discharge Planning Tomorrow am Linda Melchor Mar 06, 2017 08:58
--- NOTE | 2017-03-06 10:17 | HHI.GIFU ---
Subjective Remarks Pt resting in bed, says he feels better today. Pain today is 5.5 on scale 1-10 where before it was 8/9. Denies nausea. + formed BM last night after relistor. Wants diet advanced. d/w pt in [place]. (Dot Kebede) Objective Vitals I&O Vital Signs Date Time Temp Pulse Resp B/P (MAP) Pulse Ox O2 Delivery O2 Flow Rate FiO2 03/06/17 07:48 98.5 69 18 92/54 (67) 95 03/06/17 07:00 69 03/06/17 05:18 18 03/06/17 03:00 98.7 74 18 123/71 (88) 95 03/06/17 03:00 71 03/06/17 02:26 18 03/05/17 23:00 82 03/05/17 23:00 98.0 93 18 113/63 (80) 95 03/05/17 20:31 97 21 03/05/17 19:00 98.5 91 18 116/45 (68) 95 03/05/17 19:00 82 03/05/17 16:00 83 03/05/17 15:00 98.9 83 18 92/53 (66) 95 03/05/17 11:00 101 03/05/17 11:00 98.8 101 18 101/47 (65) 98 I/O 03/05/17 03/05/17 03/05/17 03/06/17 03/06/17 03/06/17 07:00 15:00 23:00 07:00 15:00 23:00 Intake Total 30 ml 500 ml 580 ml Output Total 2100 ml 850 ml 1350 ml Balance -2070 ml -350 ml -770 ml Intake Oral 30 ml 200 ml 480 ml IV Total 300 ml 100 ml Output Urine Total 2100 ml 850 ml 1350 ml # Bowel Movements 1 Imaging Last Impressions Abdomen X-Ray 03/06/17 0600 Signed Impressions: Service Date/Time: Monday, March 06, 2017 04:53 - CONCLUSION: Stable mildly nonspecific bowel gas pattern George Alvarado MD Abdomen/Pelvis CT 03/04/17 0000 Signed Impressions: Service Date/Time: Saturday, March 04, 2017 20:21 - CONCLUSION: 1. Postoperative change versus cellulitis right inguinal region. No fluid collections are demonstrated. 2. No acute abnormality seen within the abdomen or pelvis. 3. 22 mm left adrenal gland nodules, probably adenomas. 4. Diffuse atherosclerosis. Phil Mendez MD Chest X-Ray 02/26/17 0000 Signed Impressions: Service Date/Time: Sunday, February 26, 2017 06:17 - CONCLUSION: Suspected mild left base atelectasis or consolidation. Phil Morrell MD Physical Exam HEENT: Normocephalic; atraumatic; no jaundice. CHEST: Even/unlabored CARDIAC: RRR ABDOMEN: soft, distended,RLQ TTP; bowel sounds active x 4. EXTREMITIES: No clubbing, cyanosis, or edema. SKIN: Normal; no rash; no jaundice. SUPERINTENDENT COMPRESSOR STATIONS: No focal deficits; alert and oriented times three. (Dot Kebede) Assessment and Plan Plan Assessment - Abdominal pain/constipation- Did have a BM last night. Continued abdominal distension and diffusely TTP. Current bowel regimen includes Lactulose and Sennokot. KUB (12/) --> Nonspecific bowel gas pattern with mild gaseous distension of the sigmoid and nondistended loop of small bowel in the left upper quadrant. Of note, pt is on Oxycodone for pain control. KUB 12/5 stable, mild nonspecific gas pattern. Had formed BM after relistor. Pain improving. - Nausea and vomiting- Recent surgery, pain medication use. improved, none today - History of ulcerative colitis- No indication of active bleed at this time. Pt was restarted on Mesalamine. Plan - OK to advance diet - bowel regimen - Supportive care - GI will sign off, please reconsult if needed. Pt seen and examined by myself and Dr. Walsh and this note is written on his behalf (Dot Kebede) Physician Comments Seen and examined with HORTENCIA, good response to Relistore. Moving his bowels now. Abdomen fractionating still operator. Advance diet as tolerated. Bowel regimen. GI fu upon dc home please. Available PRN. Thank you (Ronda Andrade MD) Dot Kebede Mar 06, 2017 10:17 Ronda Andrade MD Mar 06, 2017 14:33
[2017-03-06] MEDS ORDERED: BATH/SHOWER SEA1 MIS (10:58)
--- NOTE | 2017-03-06 11:39 | PD.VS.DC ---
Discharge Summary Admission Date: Feb 26, 2017 at 05:27 Discharge Date: Mar 07, 2017 Admission Diagnosis: (1) PAD (peripheral artery disease) Discharge Diagnosis: (1) PAD (peripheral artery disease) ICD Codes: I73.9 - Peripheral vascular disease, unspecified Brief History from admission 66 yo male with PAD and R LE rest pain. Has had multiple R LE endovascular interventions, all elsewhere. Complains of pain every night. No wounds and no motor dysfunction. Procedure(s): R iliofemoral bypass, R fem-BK pop and EIA stent Significant Findings GENERAL: A&OX3,NAD,GCS15 SKIN: Warm and dry/ Incision to r groin/RLE intact well approximated w/o R/D/S/ O CARDIOVASCULAR: Regular rate and rhythm without murmurs, gallops, or rubs. RESPIRATORY: Breath sounds equal bilaterally. No accessory muscle use. GASTROINTESTINAL: Abdomen soft, non-tender, nondistended. + BS MUSCULOSKELETAL: No cyanosis, or edema. Biphasic R DP/PT Biphasic L PT LE warm with motor intact Laboratory Tests Test 03/04/17 12:51 03/04/17 13:45 03/04/17 14:32 03/05/17 03:43 Red Blood Count 3.48 MIL/MM3 (4.50-5.90) 2.95 MIL/MM3 (4.50-5.90) 3.09 MIL/MM3 (4.50-5.90) Hemoglobin 10.7 GM/DL (13.0-17.0) 9.4 GM/DL (13.0-17.0) 9.9 GM/DL (13.0-17.0) Hematocrit 32.4 % (39.0-51.0) 27.0 % (39.0-51.0) 28.8 % (39.0-51.0) Neutrophils (%) (Auto) 73.9 % (16.0-70.0) 72.7 % (16.0-70.0) Monocytes (%) (Auto) 8.1 % (0.0-8.0) 8.4 % (0.0-8.0) Arterial Blood pH 7.49 (7.380-7.420) Arterial Blood Partial Pressure CO2 31 mmHg (38-42) Arterial Blood Partial Pressure O2 138 mmHg (61-120) Blood Gas Hemoglobin 10.4 G/DL (12.0-16.0) Blood Urea Nitrogen 36 MG/DL (7-18) 25 MG/DL (7-18) Random Glucose 130 MG/DL (74-106) Albumin 2.4 GM/DL (3.4-5.0) Calcium Level 8.1 MG/DL (8.5-10.1) Estimat Glomerular Filtration Rate 74 ML/MIN (>89) 74 ML/MIN (>89) Hospital Course: 6 yo male with PAD and R LE rest pain. Hx of multiple R LE endovascular interventions, all elsewhere. Complains of pain every night. No wounds and no motor dysfunction. Pt C/o right hip neuropathic pain with movement Pt c/o vomiting/abdominal pain (POD 6)- Constipation + BM on POD 7 Labs/imaging studies reviewed pt clear for D/C (home) Arranged OP F/U in 3W with a surveillance JP Allergies Coded Allergies Type Severity Reaction Last Updated Verified fentanyl Allergy Severe 02/26/17 Yes Recent Impressions Abdomen X-Ray 03/06/17 0600 Signed Impressions: Service Date/Time: Monday, March 06, 2017 04:53 - CONCLUSION: Stable mildly nonspecific bowel gas pattern George Alvarado MD Abdomen/Pelvis CT 03/04/17 0000 Signed Impressions: Service Date/Time: Saturday, March 04, 2017 20:21 - CONCLUSION: 1. Postoperative change versus cellulitis right inguinal region. No fluid collections are demonstrated. 2. No acute abnormality seen within the abdomen or pelvis. 3. 22 mm left adrenal gland nodules, probably adenomas. 4. Diffuse atherosclerosis. Phil Mendez MD Abdomen X-Ray 03/04/17 0000 Signed Impressions: Service Date/Time: Saturday, March 04, 2017 13:38 - CONCLUSION: 1. Nonspecific bowel gas pattern with mild gaseous distention of the sigmoid and nondistended loop of small bowel in the left upper quadrant. Urbano Hair MD 03/04/17 03/04/17 03/05/17 03/05/17 03/06/17 03/06/17 06:00 18:00 06:00 18:00 06:00 18:00 Intake Total 760 ml 712 ml 30 ml 400 ml 680 ml Output Total 1255 ml 385 ml 2100 ml 850 ml 1350 ml Balance -495 ml 327 ml -2070 ml -450 ml -670 ml Intake Oral 760 ml 30 ml 200 ml 480 ml IV Total 712 ml 200 ml 200 ml Output Urine Total 1255 ml 335 ml 2100 ml 850 ml 1350 ml Gastric Drainage Total 50 ml # Bowel Movements 0 0 1 Laboratory Tests Test 03/04/17 12:51 03/04/17 13:45 03/04/17 14:32 03/05/17 03:43 White Blood Count 8.5 TH/MM3 7.0 TH/MM3 9.3 TH/MM3 Red Blood Count 3.48 MIL/MM3 2.95 MIL/MM3 3.09 MIL/MM3 Hemoglobin 10.7 GM/DL 9.4 GM/DL 9.9 GM/DL Hematocrit 32.4 % 27.0 % 28.8 % Mean Corpuscular Volume 92.9 FL 91.6 FL 93.2 FL Mean Corpuscular Hemoglobin 30.7 PG 31.9 PG 32.1 PG Mean Corpuscular Hemoglobin Concent 33.0 % 34.9 % 34.4 % Red Cell Distribution Width 14.4 % 14.2 % 14.6 % Platelet Count 393 TH/MM3 337 TH/MM3 377 TH/MM3 Mean Platelet Volume 7.3 FL 7.3 FL 7.1 FL Neutrophils (%) (Auto) 73.9 % 72.7 % Lymphocytes (%) (Auto) 15.4 % 15.5 % Monocytes (%) (Auto) 8.1 % 8.4 % Eosinophils (%) (Auto) 2.4 % 3.1 % Basophils (%) (Auto) 0.2 % 0.3 % Neutrophils # (Auto) 6.2 TH/MM3 5.1 TH/MM3 Lymphocytes # (Auto) 1.3 TH/MM3 1.1 TH/MM3 Monocytes # (Auto) 0.7 TH/MM3 0.6 TH/MM3 Eosinophils # (Auto) 0.2 TH/MM3 0.2 TH/MM3 Basophils # (Auto) 0.0 TH/MM3 0.0 TH/MM3 CBC Comment DIFF FINAL DIFF FINAL Differential Comment Blood Gas Puncture Site RT RADIAL Blood Gas Patient Temperature 98.6 Blood Gas HCO3 23 mmol/L Blood Gas Base Excess 0.1 mmol/L Blood Gas Oxygen Saturation 96 % Arterial Blood pH 7.49 Arterial Blood Partial Pressure CO2 31 mmHg Arterial Blood Partial Pressure O2 138 mmHg Arterial Blood Oxygen Content 14.3 Vol % Arterial Blood Carboxyhemoglobin 0.9 % Arterial Blood Methemoglobin 1.6 % Blood Gas Hemoglobin 10.4 G/DL Oxygen Delivery Device NASAL CANNULA Blood Gas Liter Flow 2 L/M Blood Gas Inspired Oxygen 28 % Prothrombin Time 10.5 SEC Prothromb Time International Ratio 1.0 RATIO Blood Urea Nitrogen 36 MG/DL 25 MG/DL Creatinine 1.01 MG/DL 1.02 MG/DL Random Glucose 130 MG/DL 106 MG/DL Total Protein 6.5 GM/DL Albumin 2.4 GM/DL Calcium Level 8.1 MG/DL 8.9 MG/DL Phosphorus Level 3.1 MG/DL Magnesium Level 2.2 MG/DL Alkaline Phosphatase 67 U/L Aspartate Amino Transf (AST/SGOT) 17 U/L Alanine Aminotransferase (ALT/SGPT) 26 U/L Total Bilirubin 0.3 MG/DL Direct Bilirubin 0.1 MG/DL Sodium Level 138 MEQ/L 137 MEQ/L Potassium Level 3.6 MEQ/L 4.1 MEQ/L Chloride Level 106 MEQ/L 103 MEQ/L Carbon Dioxide Level 24.4 MEQ/L 26.1 MEQ/L Anion Gap 8 MEQ/L 8 MEQ/L Estimat Glomerular Filtration Rate 74 ML/MIN 74 ML/MIN Lactic Acid Level 1.2 mmol/L Lipase 213 U/L Orders Procedure Category Date Status Time Complete Blood Count LAB 03/04/17 Complete With Diff 10:43 Mineral Oil Enema MED 03/04/17 In Process (Fleet Mineral Oil Lynette 12:30 Abdomen, Kub Only RADDIAG 03/04/17 Resulted Vascular Access Team CORINE 03/04/17 In Process Consult/P 13:45 Vascular Poc IMGUS 03/04/17 Taken Ultrasound Arterial Blood Gas LAB 03/04/17 Complete (Abg) 13:45 ^ Other Nursing Orders CORINE 03/04/17 In Process 14:12 Insert Ng Tube CORINE 03/04/17 In Process 14:12 Complete Blood Count LAB 03/04/17 Complete With Diff 14:12 Comprehensive LAB 03/04/17 Complete Metabolic Panel 14:12 Lactic Acid Sepsis LAB 03/04/17 Complete Protocol 14:12 Prothrombin Time / LAB 03/04/17 Complete Inr (Pt) 14:12 Magnesium (Mg) LAB 03/04/17 Complete 14:12 Phosphorus (Po4) LAB 03/04/17 Complete 14:12 Ct Abd/Pel W Iv RADCT 03/04/17 Resulted Contrast(Rout) Sodium Chlorid 0.9% MED 03/04/17 Complete 500 Ml Inj (Ns 500 M 14:30 Sodium Chlor 0.9% MED 03/04/17 Complete 1000 Ml Inj (Ns 1000 M 15:00 Lipase LAB 03/04/17 Complete 14:12 ^ Other Nursing Orders CORINE 03/04/17 In Process 14:12 Acetaminophen 1000 MED 03/04/17 In Process Mg/100 Ml (Ofirmev 10 15:00 Oral Contrast - Adult PHA 03/04/17 Transmitted 14:27 Direct Bilirubin LAB 03/04/17 Complete 14:12 Consult Race[employer] CONS 03/04/17 Transmitted Diatrizoate Liq ( MED 03/04/17 Complete Gastroview Liq) 15:15 (Hub Use Only)Inp Phy CONS 03/04/17 Transmitted Cons/Ref Consult CONS 03/04/17 Transmitted Gastroenterology Albuterol-Ipratropium MED 03/04/17 In Process Neb (Duoneb Neb) 15:15 Resp Incentive RSP 03/04/17 Complete Spirometry Ondansetron Inj MED 03/04/17 In Process (Zofran Inj) 15:15 Pantoprazole Inj MED 03/04/17 In Process (Protonix Inj) 15:00 Diet Npo Except Meds DIET 03/04/17 Complete Dinner (Hub Use Only)Inp Phy CONS 03/04/17 Transmitted Cons/Ref Tray, Manriquez W/ SPD 03/04/17 Logged Urimeter 16fr 15:20 Cbc No Diff, Includes LAB 03/05/17 Complete Plts 06:00 Basic Metabolic Panel LAB 03/05/17 Complete (Bmp) 06:00 Lactulose Liq MED 03/05/17 In Process (Lactulose Liq) 09:45 Sennosides (Senokot) MED 03/05/17 In Process 09:45 Remove Urinary CORINE 03/05/17 In Process Catheter 09:53 Discontinue Ng Tube CORINE 03/05/17 In Process 09:53 Diet Clear Liquid DIET 03/05/17 Complete Breakfast Mesalamine Sr MED 03/05/17 In Process (Pentasa Sr) 13:00 Methylnaltrexone Inj MED 03/05/17 Complete (Relistor Inj) 14:30 ^ Other Nursing Orders CORINE 03/05/17 In Process 14:25 Abdomen, Kub Only RADDIAG 03/06/17 Resulted 06:00 Patient Transfer ADMITTING 03/06/17 Transmitted Diet Diabetic DIET 03/06/17 Transmitted Breakfast Lactated Ringer's MED 02/26/17 Complete 1000 Ml Inj (Lr 1000 M 12:00 Sodium Chlor 0.9% 250 MED 02/26/17 Complete Ml Inj (Ns 250 Ml 12:00 Sodium Chlorid 0.9% MED 02/26/17 Complete 500 Ml Inj (Ns 500 M 12:00 Normosol R Inj MED 02/26/17 Complete (Normosol R Inj) 12:00 Lidocaine Pf 1% Inj MED 02/26/17 Complete (Xylocaine-Mpf 1% In 12:00 Rocuronium Inj MED 02/26/17 Complete (Zemuron Inj) 12:00 Neostigmine Inj MED 02/26/17 Complete (Prostigmin Inj) 12:00 Phenyleph/Ns 1000 MED 02/26/17 Complete Mcg/10ml Syr (Neosynep 12:00 Phenylephrine Inj MED 02/26/17 Complete (Neosynephrine Inj) 12:00 Ephedrine/Ns 25 Mg/5 MED 02/26/17 Complete Ml Syr (Ephedrine/N 12:00 Metoprolol Tartrate MED 02/26/17 Complete Inj (Lopressor Inj) 12:00 Esmolol Bolus Inj MED 02/26/17 Complete (Brevibloc Bolus Inj) 12:00 Midazolam Inj (Versed MED 02/26/17 Complete Inj) 12:00 Ondansetron Inj MED 02/26/17 Complete (Zofran Inj) 12:00 Morphine Inj MED 02/26/17 Complete (Morphine Inj) 12:00 Propofol 200 Mg/20 Ml MED 02/26/17 Complete Inj (Diprivan 200 12:00 Labetalol Inj MED 02/26/17 Complete (Trandate Inj) 12:00 Glycopyrrolate Inj MED 02/26/17 Complete (Robinul Inj) 12:00 Attending Discharge DISCHARGE 03/06/17 Transmitted Order Vital Signs Date Time Temp Pulse Resp B/P (MAP) Pulse Ox O2 Delivery O2 Flow Rate FiO2 03/06/17 07:48 98.5 69 18 92/54 (67) 95 03/06/17 07:00 69 03/06/17 05:18 18 03/06/17 03:00 98.7 74 18 123/71 (88) 95 03/06/17 03:00 71 03/06/17 02:26 18 03/05/17 23:00 82 03/05/17 23:00 98.0 93 18 113/63 (80) 95 03/05/17 20:31 97 21 03/05/17 19:00 98.5 91 18 116/45 (68) 95 03/05/17 19:00 82 03/05/17 16:00 83 03/05/17 15:00 98.9 83 18 92/53 (66) 95 03/05/17 11:00 101 03/05/17 11:00 98.8 101 18 101/47 (65) 98 03/05/17 08:14 97 Nasal Cannula 2.00 03/05/17 07:00 83 03/05/17 07:00 99.0 97 18 143/77 (99) 95 03/05/17 03:00 82 03/05/17 03:00 98.3 81 16 96/45 (62) 97 03/04/17 23:00 87 03/04/17 23:00 98.3 79 16 120/64 (82) 97 03/04/17 22:00 83 03/04/17 21:00 85 03/04/17 20:35 99 Nasal Cannula 2.50 03/04/17 20:00 81 03/04/17 19:00 98.6 85 16 120/64 (82) 97 03/04/17 19:00 87 03/04/17 18:00 80 03/04/17 17:00 79 03/04/17 16:00 78 03/04/17 15:00 83 03/04/17 15:00 98.0 83 24 110/55 (73) 98 03/04/17 14:00 98.7 81 24 100/52 (68) 99 03/04/17 13:00 80 03/04/17 12:00 82 03/04/17 11:00 87 03/04/17 10:00 83 03/04/17 09:00 82 03/04/17 08:00 80 12/3/17 07:00 100.6 79 20 116/53 (74) 98 03/04/17 07:00 76 03/04/17 06:15 85 03/04/17 05:15 94 03/04/17 04:20 96 03/04/17 03:30 98.4 92 18 103/59 (74) 86 03/04/17 03:30 78 03/04/17 02:03 78 03/04/17 01:12 81 03/04/17 00:40 92 03/03/17 23:51 87 03/03/17 23:15 98.5 85 19 110/53 (72) 99 03/03/17 22:00 90 03/03/17 21:15 98.8 99 20 99/58 (72) 92 03/03/17 21:00 96 03/03/17 20:00 104 03/03/17 19:43 97 03/03/17 19:00 97 03/03/17 18:00 104 03/03/17 17:00 82 03/03/17 16:00 84 03/03/17 16:00 98.3 86 19 106/57 (73) 97 03/03/17 15:00 78 03/03/17 14:00 90 03/03/17 13:00 90 03/03/17 12:00 92 Discharge Condition: Good Discharge Disposition: Discharge Home Discharge Instructions: Arranged out pt f/u in 3W with a surveillance JP A daily walking regimen is encouraged Activities as tolerated MAY SHOWER NO TUB Baths or swimming until incision is fully healed Leave incision OPEN to air Resume Diabetic diet Call the office with any questions or concern Any questions or concerns: Call [facility] at [facility] [phone] Linda Melchor Mar 06, 2017 11:39
[2017-03-06] MEDS: TAMSULOSIN HCL 0.4 MG CAP PO SCH (21:28)
[2017-03-06] MEDS: ATORVASTATIN 40 MG TAB PO SCH (21:29)
[2017-03-06] MEDS: MIRTAZAPINE 15 MG TAB PO SCH (21:29)
[2017-03-07] VITALS (15 sets, daily range): BP systolic 91–102; BP diastolic 52–57; PULSE 73–82; RESP 18; TEMP 97.7–98; O2SAT 97–99
[2017-03-07] MEDS: PANTOPRAZOLE SODIUM 40 MG VIAL IV PUSH SCH ×3 (02:35→14:21)
[2017-03-07] MEDS: HIGH DOSE INSULIN NOVOLOG SUPPLEMENTAL SCALE SQ SCH ×2 (08:00→12:00)
[2017-03-07] MEDS: INSULIN DETEMIR 100 UNITS/ML VIAL SQ SCH (08:59)
[2017-03-07] MEDS: LACTULOSE SYRUP 20 GM/30 ML CUP PO SCH (09:00)
[2017-03-07] MEDS: DOCUSATE SODIUM 50 MG/SENNA 8.6 MG TAB PO SCH (09:00)
[2017-03-07] MEDS: SENNOSIDES 8.6 MG TAB PO SCH (09:00)
[2017-03-07] MEDS: ENOXAPARIN SODIUM 40 MG/0.4 ML SYRINGE SQ SCH (09:00)
[2017-03-07] MEDS: GABAPENTIN 300 MG CAP PO SCH (09:01)
[2017-03-07] MEDS: ISOSORBIDE MONONITRATE 30 MG TAB PO SCH (09:01)
[2017-03-07] MEDS: ASPIRIN 325 MG TAB PO SCH (09:02)
[2017-03-07] MEDS: TRIAMTERENE/HCTZ 37.5 MG/25 MG TAB PO SCH (09:02)
[2017-03-07] MEDS: LISINOPRIL 20 MG TAB PO SCH (09:02)
[2017-03-07] MEDS: CLOPIDOGREL 75 MG TAB PO SCH (09:02)
[2017-03-07] MEDS: MESALAMINE 250 MG CAP PO SCH ×2 (09:02→12:00)
[2017-03-07] MEDS: BUDESONIDE-FORMOTEROL 160/4.5 MCG INHALER INH SCH (09:03)
[2017-03-07] MEDS: QUEtiapine FUMARATE 200 MG TAB PO SCH (09:03)
[2017-03-07] MEDS: METOPROLOL TARTRATE 25 MG TAB PO SCH (09:03)
--- NOTE | 2017-03-07 09:28 | PD.VS.PN ---
Subjective POD #: 9 Procedure(s): R iliofemoral bypass, R fem-BK pop and EIA stent Subjective/Hospital Course Pt doing well this am- Afebrile Incision to R groin/RLE intact w/ erythema at the incision line Objective Vitals/I&O Date Time Temp Pulse Resp B/P (MAP) Pulse Ox O2 Delivery O2 Flow Rate FiO2 03/07/17 08:08 98.0 78 18 102/54 (70) 97 03/07/17 07:00 81 03/07/17 06:01 74 03/07/17 05:03 82 03/07/17 04:00 81 03/07/17 03:09 97.7 77 18 98/57 (71) 97 03/07/17 03:00 73 03/07/17 02:00 76 03/07/17 01:00 75 03/07/17 00:33 18 03/07/17 00:16 77 03/06/17 23:33 98.5 79 18 97/53 (68) 95 03/06/17 23:00 75 03/06/17 19:00 84 03/06/17 19:00 99.2 90 18 122/57 (78) 93 03/06/17 15:00 98.5 79 16 100/53 (69) 97 03/06/17 15:00 79 03/06/17 12:53 16 03/06/17 11:44 98.7 77 18 94/52 (66) 96 03/06/17 11:00 77 03/07/17 03/07/17 03/07/17 07:00 15:00 23:00 Intake Total 700 ml Balance 700 ml Exam: GENERAL: A&OX3,NAD,GCS15 SKIN: Warm and dry/ Incision to r groin with erythema at the incision line /RLE incision intact well approximated w/o R/D/S/O CARDIOVASCULAR: Regular rate and rhythm without murmurs, gallops, or rubs. RESPIRATORY: Breath sounds equal bilaterally. No accessory muscle use. GASTROINTESTINAL: Abdomen soft, non-tender, nondistended. + BS MUSCULOSKELETAL: No cyanosis, or edema. Biphasic R DP/PT Biphasic L PT LE warm with motor intact Assessment and Plan Assessment: (1) PAD (peripheral artery disease) Plan POD#9 Pt w/o abdominal pain/nausea Recent imaging studies reviewed- no acute findings/constipation Prescribed Bactrim DS for antibiotic therapy - R groin Called and spoke with to review D/C instructions Plan D/C today Discussed and reviewed post operative care and management Questions answered Arranged out pt f/u Linda BURNETT [facility] [phone] Discharge Planning today Linda Melchor Mar 07, 2017 09:28
[2017-03-07] MEDS ORDERED: SULFAMETHOXAZOLE-TRIMETHOPRIM DS 800-160 MG TAB PO ONE (10:45)
[2017-03-07] MEDS ORDERED: BACT800T5 PO (11:20)
== END 2017-03-07 16:30 | disposition home or self-care (01) | DRG 271 ==
LOC: HSDI 05:27 → HCPC 14:32 → HCVI 03-04 14:05 → HCPC 03-06 12:14
PROVIDERS: ADMIT Surgery; ATTEND Surgery
PROC: 041K0KL Bypass Right Femoral Artery to Popliteal Artery with Nonautologous Tissue Substitute, Open Approach (ICD-10-PCS; 2017-02-26)
PROC: 041H0JH Bypass Right External Iliac Artery to Right Femoral Artery with Synthetic Substitute, Open Approach (ICD-10-PCS; 2017-02-26)
PROC: 047H3DZ Dilation of Right External Iliac Artery with Intraluminal Device, Percutaneous Approach (ICD-10-PCS; 2017-02-26)
PROC: B41F1ZZ Fluoroscopy of Right Lower Extremity Arteries using Low Osmolar Contrast (ICD-10-PCS; 2017-02-26)
PROC: 04CH0ZZ Extirpation of Matter from Right External Iliac Artery, Open Approach (ICD-10-PCS; principal; 2017-02-26 07:54)
DX: E11.51 Type 2 diabetes mellitus with diabetic peripheral angiopathy without gangrene (principal); K51.90 Ulcerative colitis, unspecified, without complications; E11.42 Type 2 diabetes mellitus with diabetic polyneuropathy; I95.9 Hypotension, unspecified; I10 Essential (primary) hypertension; I25.10 Atherosclerotic heart disease of native coronary artery without angina pectoris; E78.00 Pure hypercholesterolemia, unspecified; R11.10 Vomiting, unspecified; K59.00 Constipation, unspecified; Z95.5 Presence of coronary angioplasty implant and graft; Z85.46 Personal history of malignant neoplasm of prostate; Z87.891 Personal history of nicotine dependence; Z79.4 Long term (current) use of insulin
CPT/HCPCS: 36600; 71010; 74000; 74177; 76937; 80048; 80053; 82248; 82805; 82948; 83036; 83605; 83690; 83735; 84100; 85025; 85027; 85610; 86850; 86900; 86901; 93005; 94150; C1725; C1768; C1769; C1876; C9113; J0131; J0690; J1170; J1644; J1650; J1815; J2212; J2250; J2270; J2370; J2405; J2710; J2720; J3480; J7030; J7040; J7050; J7120; Q9963; Q9967